=== PATIENT | female | born 1945 | race Caucasian/White ===

== ENCOUNTER 2017-09-16 19:14 | Inpatient (IN) | payer OTHER, MEDICAID ==
[~2017-09-16] VITALS: Ht 167.6 cm; Wt 81.3 kg
[~2017-09-16 19:14] MED LIST: MECL25TA94; METF100097; Plavix; VENL150C; lipitor
[2017-09-16] MEDS ORDERED: MORPHINE SULF INJ 2 MG/ML SYRINGE 1ML ONE (23:34)
[2017-09-16] MEDS ORDERED: ONDANSETRON HCL 4 MG/2 ML VIAL IV ONE (23:45)
[2017-09-16] MEDS ORDERED: MORPHINE SULFATE 4 MG/ML SYR/VIAL IV ONE (23:45)
[2017-09-17 00:39] LABS: Basophils # (auto) 0.1 uL; Basophils % (auto) 0.8 % (0.0-2.0); Eosinophils # (auto) 0.1 uL; Eosinophils % (auto) 0.7 % (0.0-7.0); Hematocrit 43.4 % (36.0-46.0); Hemoglobin 14.3 g/dL (12.2-16.2); Lymphocytes # (auto) 1.6 uL; Lymphocytes % (auto) 19.1 % (10.0-50.0); Monocytes # (auto) 0.6 uL; Monocytes % (auto) 6.7 % (0.0-12.0); Neutrophils % (auto) 72.7 % (37.0-80.0); Nucleated Red Blood Cells % 0.1 %; Platelet Count (auto) 239 10^3/uL (140-450); Red Blood Cells 4.77 10^6/uL (4.0-5.20); Red Cell Distribution Width 15.4 % (11.8-14.3); White Blood Cell 8.2 10^3/uL (4.4-10.8)
[2017-09-17 00:51] LABS: INR 0.98 (0.9-1.15); Partial Thromboplastin Time 24.3 sec (22.64-33.71); Prothrombin Time 10.7 sec (9.37-12.3)
[2017-09-17 00:55] LABS: Albumin 3.7 g/dL (3.4-5.0); BUN/Creatinine Ratio 18.6; Calcium 8.7 mg/dL (8.5-10.1); Potassium 3.7 mmol/L (3.5-5.1)
[2017-09-17 00:57] LABS: Bilirubin, Total 0.5 mg/dL (0.2-1.0); Total Protein 7.3 g/dL (6.4-8.2)
[2017-09-17] MEDS ORDERED: HYDROcodone-ACET 10/325MG TAB PO ONE (02:15)
[2017-09-17] MEDS: SODIUM CHLORIDE 0.9% 1,000 ML IV SCH ×2 (03:52→20:32)
[2017-09-17] MEDS ORDERED: ONDANSETRON HCL 4 MG/2 ML VIAL IV PRN (04:00)
[2017-09-17] MEDS ORDERED: DOCUSATE SOD 100 MG CAP PO PRN (04:00)
[2017-09-17] MEDS ORDERED: TEMAZEPAM 15 MG CAP PO PRN (04:00)
[2017-09-17] MEDS ORDERED: ACETAMINOPHEN 325 MG TAB PO PRN (04:00)
[2017-09-17] MEDS ORDERED: NITROGLYCERIN 0.4 MG SL TAB SL PRN (04:00)
[2017-09-17] MEDS ORDERED: DEXTROSE (50%) 50ML SYRG IV PRN (04:00)
[2017-09-17] MEDS ORDERED: MORPHINE SULFATE 4 MG/ML SYR/VIAL IV PRN (04:00)
[2017-09-17] MEDS: ACCU-CHEK COMFORT CURVE STRIP VI SCH ×3 (06:00→18:30)
[2017-09-17] MEDS: InsuLIN REG 1unit/0.01ml Soln (100units/ml) SC SCH ×3 (06:00→18:31)
[2017-09-17] MEDS: HYDROcodone-ACET 5/325MG TAB PO PRN (08:22)
[2017-09-17] MEDS: LISINOPRIL 5 MG TAB PO SCH (10:00)
[2017-09-17] MEDS: PARoxetine 20 MG TAB PO SCH (10:22)
[2017-09-17] MEDS: TOLTERODINE TARTRATE 1 MG TAB PO SCH ×2 (10:22→22:31)
[2017-09-17] MEDS: ENOXAPARIN SOD 40 MG/0.4 ML SYRINGE SC SCH (10:22)
[2017-09-17] MEDS: ASPirin 81 mg TAB PO SCH (10:22)
[2017-09-17] MEDS: FAMOTIDINE 20 MG TAB PO SCH ×2 (10:22→22:32)
[2017-09-17] MEDS ORDERED: LORA-654 PO (10:37)
[2017-09-17] MEDS ORDERED: LISI-275 PO (10:38)
[2017-09-17] MEDS ORDERED: TOLT2CAP7 PO (10:38)
[2017-09-17] MEDS ORDERED: PIO30T PO (10:38)
[2017-09-17] MEDS ORDERED: CLOP75TA28 PO (10:39)
[2017-09-17] MEDS ORDERED: MECL-87 PO (10:39)
[2017-09-17] MEDS ORDERED: PAR20T PO (10:40)
[2017-09-17] MEDS ORDERED: ATO40T PO (10:40)
[2017-09-17] MEDS ORDERED: METF-371 PO (10:41)
[2017-09-17] MEDS: HYDROmorphone HCL 2 MG/ML VL IV PRN ×2 (11:06→18:32)
[2017-09-17 13:12] LABS: Urine Bacteria FEW /hpf (None Seen); Urine Blood 1+ /uL (Negative); Urine Budding Yeast OCCASIONAL /hpf (None Seen); Urine Mucus FEW (None Seen); Urine Specific Gravity 1.036 (1.001-1.035); Urine WBC 73 /hpf (0 - 5)
[2017-09-17 17:00] VITALS: BP 123/69
[2017-09-17 22:00] VITALS: BP 110/62
[2017-09-17] MEDS: ATORVASTATIN 20 MG TAB PO SCH (22:32)
[2017-09-18] MEDS: InsuLIN REG 1unit/0.01ml Soln (100units/ml) SC SCH ×4 (01:11→17:41)
[2017-09-18 05:00] VITALS: BP 118/64
[2017-09-18] MEDS: ACCU-CHEK COMFORT CURVE STRIP VI SCH ×4 (05:47→17:42)
[2017-09-18 05:48] LABS: Basophils # (auto) 0.2 uL; Eosinophils # (auto) 0.1 uL; Eosinophils % (auto) 2.4 % (0.0-7.0); Hematocrit 40.9 % (36.0-46.0); Hemoglobin 13.6 g/dL (12.2-16.2); Lymphocytes # (auto) 1.9 uL; Lymphocytes % (auto) 32.5 % (10.0-50.0); Mean Corpuscular Hemoglobin 30.1 pg (28.0-32.0); Mean Corpuscular Hgb Conc. 33.3 g/dL (32.0-36.0); Mean Corpuscular Volume 90.4 fL (80.0-100.0); Monocytes # (auto) 0.5 uL; Monocytes % (auto) 8.1 % (0.0-12.0); Neutrophils # (auto) 3.1 uL; Nucleated Red Blood Cells % 0.2 %; Platelet Count (auto) 195 10^3/uL (140-450); Red Blood Cells 4.53 10^6/uL (4.0-5.20); Red Cell Distribution Width 15.2 % (11.8-14.3); White Blood Cell 5.8 10^3/uL (4.4-10.8)
[2017-09-18 06:07] LABS: Albumin 3.2 g/dL (3.4-5.0); BUN/Creatinine Ratio 18.9; Bilirubin, Total 0.7 mg/dL (0.2-1.0); Calcium 8.4 mg/dL (8.5-10.1); Potassium 4.1 mmol/L (3.5-5.1); Total Protein 6.6 g/dL (6.4-8.2)
[2017-09-18 08:00] VITALS: BP 129/69
[2017-09-18] MEDS: HYDROmorphone HCL 2 MG/ML VL IV PRN ×3 (08:27→20:05)
[2017-09-18 09:00] VITALS: BP 129/69
[2017-09-18] MEDS: TOLTERODINE TARTRATE 1 MG TAB PO SCH ×2 (09:49→21:33)
[2017-09-18] MEDS: FAMOTIDINE 20 MG TAB PO SCH ×2 (09:50→21:33)
[2017-09-18] MEDS: ASPirin 81 mg TAB PO SCH (09:50)
[2017-09-18] MEDS: PARoxetine 20 MG TAB PO SCH (09:50)
[2017-09-18] MEDS: LISINOPRIL 5 MG TAB PO SCH (09:51)
[2017-09-18] MEDS: ENOXAPARIN SOD 40 MG/0.4 ML SYRINGE SC SCH (09:51)
[2017-09-18 13:00] VITALS: BP 130/69
[2017-09-18] MEDS: SODIUM CHLORIDE 0.9% 1,000 ML IV SCH (13:12)
[2017-09-18 16:56] VITALS: BP 132/93
[2017-09-18] MEDS: HYDROcodone-ACET 5/325MG TAB PO PRN (17:41)
[2017-09-18] MEDS: ATORVASTATIN 20 MG TAB PO SCH (21:33)
[2017-09-18 22:27] VITALS: BP 140/78
[2017-09-19] MEDS: ACCU-CHEK COMFORT CURVE STRIP VI SCH ×5 (00:02→23:52)
[2017-09-19] MEDS: InsuLIN REG 1unit/0.01ml Soln (100units/ml) SC SCH ×6 (00:22→23:57)
[2017-09-19 05:30] VITALS: BP 139/75
[2017-09-19 08:00] VITALS: BP 139/79
[2017-09-19 09:00] VITALS: BP 139/79
[2017-09-19] MEDS: PARoxetine 20 MG TAB PO SCH (10:14)
[2017-09-19] MEDS: TOLTERODINE TARTRATE 1 MG TAB PO SCH ×2 (10:14→21:12)
[2017-09-19] MEDS: FAMOTIDINE 20 MG TAB PO SCH ×2 (10:14→21:12)
[2017-09-19] MEDS: ASPirin 81 mg TAB PO SCH (10:15)
[2017-09-19] MEDS: LISINOPRIL 5 MG TAB PO SCH (10:15)
[2017-09-19] MEDS: HYDROmorphone HCL 2 MG/ML VL IV PRN ×3 (10:16→21:17)
[2017-09-19] MEDS: ENOXAPARIN SOD 40 MG/0.4 ML SYRINGE SC SCH (10:16)
[2017-09-19] MEDS ORDERED: MILK OF MAGNESIA 30ML SUSP PO PRN (11:00)
[2017-09-19 13:00] VITALS: BP 147/78
[2017-09-19 17:46] VITALS: BP 151/77
[2017-09-19] MEDS ORDERED: guaiFENesin-DM 100/10mg/5ml SYR PO ONE (21:00)
[2017-09-19] MEDS: ATORVASTATIN 20 MG TAB PO SCH (21:11)
[2017-09-19] MEDS: DOCUSATE SOD 100 MG CAP PO SCH (21:11)
[2017-09-20] VITALS (7 sets, daily range): BP systolic 136–152; BP diastolic 67–91
[2017-09-20] MEDS: InsuLIN REG 1unit/0.01ml Soln (100units/ml) SC SCH ×3 (05:51→17:31)
[2017-09-20] MEDS ORDERED: ADENOSINE 72 MG in GIVE UN-DILUTED 0 ML IV ONE (08:30)
[2017-09-20] MEDS: DOCUSATE SOD 100 MG CAP PO SCH ×2 (10:00→21:39)
[2017-09-20] MEDS: ENOXAPARIN SOD 40 MG/0.4 ML SYRINGE SC SCH (10:00)
[2017-09-20] MEDS: TOLTERODINE TARTRATE 1 MG TAB PO SCH ×2 (10:00→21:39)
[2017-09-20] MEDS: ASPirin 81 mg TAB PO SCH (12:01)
[2017-09-20] MEDS: LISINOPRIL 5 MG TAB PO SCH (12:02)
[2017-09-20] MEDS: FAMOTIDINE 20 MG TAB PO SCH ×2 (12:02→21:39)
[2017-09-20] MEDS: PARoxetine 20 MG TAB PO SCH (12:02)
[2017-09-20] MEDS: ACCU-CHEK COMFORT CURVE STRIP VI SCH ×2 (12:03→17:13)
[2017-09-20] MEDS: PROMETHAZINE-DM 5 ML ORAL SYRUP PO PRN (15:33)
[2017-09-20] MEDS: HYDROmorphone HCL 2 MG/ML VL IV PRN ×2 (17:13→21:40)
[2017-09-20] MEDS: ATORVASTATIN 20 MG TAB PO SCH (21:39)
[2017-09-21] MEDS: InsuLIN REG 1unit/0.01ml Soln (100units/ml) SC SCH ×4 (00:18→18:08)
[2017-09-21] MEDS: ACCU-CHEK COMFORT CURVE STRIP VI SCH ×4 (00:18→17:39)
[2017-09-21 05:30] VITALS: BP 151/72
[2017-09-21 08:00] VITALS: BP 135/67
[2017-09-21 09:00] VITALS: BP 135/67
[2017-09-21] MEDS: ENOXAPARIN SOD 40 MG/0.4 ML SYRINGE SC SCH (10:00)
[2017-09-21] MEDS: DOCUSATE SOD 100 MG CAP PO SCH ×2 (10:00→22:00)
[2017-09-21] MEDS: ASPirin 81 mg TAB PO SCH (10:04)
[2017-09-21] MEDS: LISINOPRIL 5 MG TAB PO SCH (10:05)
[2017-09-21] MEDS: FAMOTIDINE 20 MG TAB PO SCH ×2 (10:06→22:06)
[2017-09-21] MEDS: PARoxetine 20 MG TAB PO SCH (10:06)
[2017-09-21] MEDS: TOLTERODINE TARTRATE 1 MG TAB PO SCH ×2 (10:06→22:06)
[2017-09-21 13:00] VITALS: BP 124/60
[2017-09-21] MEDS: PROMETHAZINE-DM 5 ML ORAL SYRUP PO PRN (15:18)
[2017-09-21 17:22] VITALS: BP 138/66
[2017-09-21 22:00] VITALS: BP 130/69
[2017-09-21] MEDS: ATORVASTATIN 20 MG TAB PO SCH (22:06)
[2017-09-22] MEDS: ACCU-CHEK COMFORT CURVE STRIP VI SCH ×5 (00:05→23:22)
[2017-09-22] MEDS: InsuLIN REG 1unit/0.01ml Soln (100units/ml) SC SCH ×5 (00:06→23:22)
[2017-09-22 06:00] VITALS: BP 123/69
[2017-09-22 08:00] VITALS: BP 109/67
[2017-09-22] MEDS ORDERED: IOHEXOL 350 MG/ML 100ML IJ ONE (08:15)
[2017-09-22] MEDS ORDERED: LIDOCAINE 2%HCL (LOCAL ANESTH.) INJ 20ML MDV ONE (08:15)
[2017-09-22] MEDS ORDERED: fentaNYL CITRATE 100 MCG/2 ML VL ONE (08:20)
[2017-09-22] MEDS ORDERED: MIDAZOLAM HCL 1MG/1ML-2 ML VIAL ONE (08:20)
[2017-09-22] MEDS ORDERED: ANGIOMAX 250 MG VIAL IV ONE (08:20)
[2017-09-22] MEDS ORDERED: SODIUM CHL 0.9% 50 ML ONE (08:21)
[2017-09-22] MEDS: ASPirin 81 mg TAB PO SCH (10:00)
[2017-09-22] MEDS: DOCUSATE SOD 100 MG CAP PO SCH ×2 (10:00→22:00)
[2017-09-22] MEDS: FAMOTIDINE 20 MG TAB PO SCH ×2 (12:08→21:59)
[2017-09-22] MEDS: PARoxetine 20 MG TAB PO SCH (12:08)
[2017-09-22] MEDS: TOLTERODINE TARTRATE 1 MG TAB PO SCH ×2 (12:09→21:59)
[2017-09-22] MEDS: ENOXAPARIN SOD 40 MG/0.4 ML SYRINGE SC SCH (12:09)
[2017-09-22] MEDS: LISINOPRIL 5 MG TAB PO SCH (12:09)
[2017-09-22 13:03] VITALS: BP 109/67
[2017-09-22 17:00] VITALS: BP 120/70
[2017-09-22 20:00] VITALS: BP 135/70
[2017-09-22] MEDS: HYDROcodone-ACET 5/325MG TAB PO PRN (20:56)
[2017-09-22 21:49] VITALS: BP 135/70
[2017-09-22] MEDS: ATORVASTATIN 20 MG TAB PO SCH (22:00)
[2017-09-23 05:16] VITALS: BP 128/62
[2017-09-23] MEDS: ACCU-CHEK COMFORT CURVE STRIP VI SCH ×3 (05:50→18:00)
[2017-09-23] MEDS: InsuLIN REG 1unit/0.01ml Soln (100units/ml) SC SCH ×3 (05:50→18:00)
[2017-09-23 08:00] VITALS: BP 122/66
[2017-09-23] MEDS: DOCUSATE SOD 100 MG CAP PO SCH ×3 (10:00→22:41)
[2017-09-23] MEDS: LISINOPRIL 5 MG TAB PO SCH (10:06)
[2017-09-23] MEDS: TOLTERODINE TARTRATE 1 MG TAB PO SCH ×2 (10:07→22:41)
[2017-09-23] MEDS: PARoxetine 20 MG TAB PO SCH (10:07)
[2017-09-23] MEDS: FAMOTIDINE 20 MG TAB PO SCH ×2 (10:07→22:41)
[2017-09-23] MEDS: ENOXAPARIN SOD 40 MG/0.4 ML SYRINGE SC SCH (10:08)
[2017-09-23] MEDS: ASPirin 81 mg TAB PO SCH (10:13)
[2017-09-23 13:04] VITALS: BP 113/82
[2017-09-23 16:48] VITALS: BP 118/72
[2017-09-23] MEDS: HYDROmorphone HCL 2 MG/ML VL IV PRN (20:05)
[2017-09-23 21:30] VITALS: BP 118/69
[2017-09-23] MEDS: ATORVASTATIN 20 MG TAB PO SCH (22:41)
[2017-09-23] MEDS: PROMETHAZINE-DM 5 ML ORAL SYRUP PO PRN (22:43)
[2017-09-24] MEDS: InsuLIN REG 1unit/0.01ml Soln (100units/ml) SC SCH ×5 (00:48→23:15)
[2017-09-24 05:00] VITALS: BP 141/69
[2017-09-24] MEDS: ACCU-CHEK COMFORT CURVE STRIP VI SCH ×5 (05:46→23:15)
[2017-09-24 09:00] VITALS: BP 145/66
[2017-09-24] MEDS: DOCUSATE SOD 100 MG CAP PO SCH ×2 (10:00→20:13)
[2017-09-24] MEDS: TOLTERODINE TARTRATE 1 MG TAB PO SCH ×2 (10:49→20:12)
[2017-09-24] MEDS: FAMOTIDINE 20 MG TAB PO SCH ×2 (10:49→20:13)
[2017-09-24] MEDS: PARoxetine 20 MG TAB PO SCH (10:49)
[2017-09-24] MEDS: LISINOPRIL 5 MG TAB PO SCH (10:52)
[2017-09-24] MEDS: ASPirin 81 mg TAB PO SCH (10:53)
[2017-09-24] MEDS: ENOXAPARIN SOD 40 MG/0.4 ML SYRINGE SC SCH (10:53)
[2017-09-24] MEDS: HYDROmorphone HCL 2 MG/ML VL IV PRN ×3 (11:00→20:13)
[2017-09-24 13:00] VITALS: BP 133/76
[2017-09-24 16:54] VITALS: BP 103/61
[2017-09-24] MEDS: ATORVASTATIN 20 MG TAB PO SCH (20:13)
[2017-09-24] MEDS: PROMETHAZINE-DM 5 ML ORAL SYRUP PO PRN (21:32)
[2017-09-24 22:00] VITALS: BP 90/54
[2017-09-25] MEDS: HYDROmorphone HCL 2 MG/ML VL IV PRN ×3 (04:52→13:24)
[2017-09-25] MEDS: ACCU-CHEK COMFORT CURVE STRIP VI SCH ×3 (04:52→17:33)
[2017-09-25] MEDS: InsuLIN REG 1unit/0.01ml Soln (100units/ml) SC SCH ×3 (04:53→17:33)
[2017-09-25 05:00] VITALS: BP 138/91
[2017-09-25 08:46] VITALS: BP 128/74
[2017-09-25] MEDS: PROMETHAZINE-DM 5 ML ORAL SYRUP PO PRN (09:13)
[2017-09-25] MEDS: DOCUSATE SOD 100 MG CAP PO SCH (10:00)
[2017-09-25] MEDS: ASPirin 81 mg TAB PO SCH (10:12)
[2017-09-25] MEDS: ENOXAPARIN SOD 40 MG/0.4 ML SYRINGE SC SCH (10:13)
[2017-09-25] MEDS: LISINOPRIL 5 MG TAB PO SCH (10:14)
[2017-09-25] MEDS: PARoxetine 20 MG TAB PO SCH (10:15)
[2017-09-25] MEDS: FAMOTIDINE 20 MG TAB PO SCH (10:16)
[2017-09-25] MEDS: TOLTERODINE TARTRATE 1 MG TAB PO SCH (10:16)
[2017-09-25 13:00] VITALS: BP 126/66
[2017-09-25 16:20] VITALS: BP 126/66
[2017-09-25 17:00] VITALS: BP 112/70
== END 2017-09-25 18:45 | DRG 280 ==
LOC: ER 19:27 → TELE 19:28 → TELE-WESTW 09-17 16:08
PROVIDERS: ADMIT Nurse Practitioner; ATTEND Internal Medicine
PROC: 4A023N7 Measurement of Cardiac Sampling and Pressure, Left Heart, Percutaneous Approach (ICD-10-PCS; principal; 2017-09-22)
PROC: B2111ZZ Fluoroscopy of Multiple Coronary Arteries using Low Osmolar Contrast (ICD-10-PCS; 2017-09-22)
PROC: B2151ZZ Fluoroscopy of Left Heart using Low Osmolar Contrast (ICD-10-PCS; 2017-09-22)
DX: I21.4 Non-ST elevation (NSTEMI) myocardial infarction (principal); S32.491A Other specified fracture of right acetabulum, initial encounter for closed fracture; E11.9 Type 2 diabetes mellitus without complications; I67.2 Cerebral atherosclerosis; W18.39XA Other fall on same level, initial encounter; W18.30XA Fall on same level, unspecified, initial encounter; I10 Essential (primary) hypertension; I25.10 Atherosclerotic heart disease of native coronary artery without angina pectoris; E78.5 Hyperlipidemia, unspecified; M54.2 Cervicalgia; K59.00 Constipation, unspecified; F32.9 Major depressive disorder, single episode, unspecified; F41.9 Anxiety disorder, unspecified; Z98.61 Coronary angioplasty status; Z79.899 Other long term (current) drug therapy; Y93.89 Activity, other specified; Y92.098 Other place in other non-institutional residence as the place of occurrence of the external cause; Y99.8 Other external cause status; Z87.81 Personal history of (healed) traumatic fracture; Z86.12 Personal history of poliomyelitis; Z86.73 Personal history of transient ischemic attack (TIA), and cerebral infarction without residual deficits; Z71.3 Dietary counseling and surveillance
CPT/HCPCS: 36415; 70450; 71045; 72131; 73700; 80053; 81001; 82962; 83880; 84443; 84484; 85025; 85610; 85730; 93005; 93017; 93306; 93458; 96372; 96374; 96375; 97116; 97163; 97530; 99152; J0153; J1815; J2250; J2405

== ENCOUNTER 2022-03-06 11:23 | Emergency (ER) | payer OTHER, MEDICAID ==
[~2022-03-06] VITALS: Ht 170.2 cm; Wt 72.6 kg
[~2022-03-06 11:23] MED LIST changes: +ATO40T PO; +CLOP75TA28 PO; +HYDR-531; +HYDR25TA5; +INSLANTI; +LISI-275 PO; +LORA0.5T20 PO; +MECL25TA18 PO; -MECL25TA94; +METF-371 PO; -METF100097; +PAR20T PO; +PIO30T PO; +POTA1TAB61; +PRIM50TA5; +PROC10TA2; -Plavix; +TOLT2CAP PO; -VENL150C; -lipitor; +pravastatin
[2022-03-06] MEDS ORDERED: SODIUM CHLORIDE 0.9% 500 ML IV ONE (12:15)
[2022-03-06 13:44] LABS: Basophils # (auto) 0 10 ^3/uL (0-0.2); Basophils % (auto) 0.4 % (0.0-2.0); Eosinophils # (auto) 0 10 ^3/uL (0-0.8); Eosinophils % (auto) 0.3 % (0.0-7.0); Hemoglobin 12.7 g/dL (12.2-16.2); Lymphocytes # (auto) 0.5 10 ^3/uL (0.4-5.4); Lymphocytes % (auto) 4.6 % (10.0-50.0); Mean Corpuscular Hemoglobin 30.4 pg (28.0-32.0); Mean Corpuscular Hgb Conc. 33.4 g/dL (32.0-36.0); Mean Corpuscular Volume 90.9 fL (80.0-100.0); Monocytes # (auto) 0.8 10 ^3/uL (0-1.3); Monocytes % (auto) 6.7 % (0.0-12.0); Neutrophils # (auto) 10.1 10 ^3/uL (1.6-8.6); Red Blood Cells 4.18 10^6/uL (4.0-5.20); Red Cell Distribution Width 14.5 % (11.8-14.3); White Blood Cell 11.4 10^3/uL (4.4-10.8)
[2022-03-06 13:59] LABS: Potassium 3.9 mmol/L (3.5-5.1)
[2022-03-06 14:05] LABS: Albumin 3.2 g/dL (3.4-5.0); BUN/Creatinine Ratio 28.7; Bilirubin, Total 0.4 mg/dL (0.2-1.0); Calcium 8.7 mg/dL (8.5-10.1); Total Protein 7.7 g/dL (6.4-8.2)
[2022-03-06 14:58] LABS: Urine Bacteria MANY /hpf (None Seen); Urine Blood Negative /uL (Negative); Urine Mucus FEW (None Seen); Urine Specific Gravity 1.018 (1.001-1.035); Urine WBC 5 /hpf (0 - 5)
[2022-03-06] MEDS ORDERED: NITR-87 PO (16:38)
[2022-03-06] MEDS ORDERED: cefTRIAXone 1GM/50ML D5W 50 ML IV ONE (16:45)
[2022-03-06 17:00] VITALS: BP 155/74
== END 2022-03-06 17:55 | disposition home or self-care (01) ==
LOC: ER 11:23 → EDBD 11:23 → ER 17:55
DX: E11.649 Type 2 diabetes mellitus with hypoglycemia without coma (principal); N39.0 Urinary tract infection, site not specified; D72.829 Elevated white blood cell count, unspecified; E78.5 Hyperlipidemia, unspecified; I10 Essential (primary) hypertension; Z86.73 Personal history of transient ischemic attack (TIA), and cerebral infarction without residual deficits; Z90.49 Acquired absence of other specified parts of digestive tract
CPT/HCPCS: 36415; 71045; 80053; 81001; 82962; 85025; 93005; 96361; 96365; 99285; J0696; J7040

== ENCOUNTER 2024-09-08 09:02 | Inpatient (IN) | payer OTHER, MEDICAID ==
[~2024-09-08] VITALS: Ht 170.2 cm; Wt 78.5 kg
[~2024-09-08 09:02] MED LIST changes: -ATO40T PO; +ATOR-507 PO; +LORA-1121 PO; -LORA0.5T20 PO; +MECL-90 PO; -MECL25TA18 PO; +NITR-87 PO; +POTA-215; -POTA1TAB61; -PROC10TA2; +PROC10TA6
--- NOTE | 2024-09-08 10:55 | DVH ---
CT ABDOMEN AND PELVIS WITHOUT CONTRAST CLINICAL HISTORY: gib TECHNIQUE: Multiple contiguous axial images of the abdomen and pelvis without intravenous contrast. The images were reformatted degenerate coronal and sagittal reconstructions. All CT scans at this medical facility are performed using dose modulation techniques as appropriate t o a performed exam including the following:Automated exposure control was utilized; adjustment of the MA and/or KV according to patient size; and use of iterative reconstruction technique. Radiation Dose Information: CT Dose: CTDI volume is 12 mGy. Dose-length product is 724 mGy*cm Comparison: None FINDINGS: Evaluation of the abdomen and pelvis is limited without intravenous contrast. Gallbladder is surgically absent. There are calcified granulomas in the spleen and a few in the liver . There is a 2.4 cm right lower pole renal cyst. There is no evidence of nephrolithiasis or hydronep hrosis. The pancreas, and adrenal glands, appear within normal limits. There is no gross evidence of abdominal lymphadenopathy. There is no free fluid or free air. The stomach grossly appears unremarkable. The small and large bowel loops demonstrate normal caliber . There is moderate amount of stool in the colon. Calcified atherosclerotic changes in the abdominal aorta. The IVC appears within normal limits. The bladder appears unremarkable for the degree of distention. Uterus is surgically absent.. There i s no gross evidence of a pelvic mass. There is no free fluid collection. Lung bases are clear. There is no acute osseous abnormality. IMPRESSION: 1. There is no acute process in the abdomen and pelvis. 2. Moderate amount of stool in the colon. 3. Cholecystectomy and hysterectomy. 4. Calcified granulomas in the spleen and a few in the liver. HS:Y
--- NOTE | 2024-09-08 10:56 | DVH ---
CHEST RADIOGRAPH Indication: weakness Technique: Single frontal view of the chest was obtained COMPARISON: CHEST PORTABLE on DOS: 03/06/22, CXRP on DOS: 03/06/22, CHEST PORTABLE on DOS: 10/07/19 FINDINGS: Lines and Tubes: None Lungs: Clear Pleura: No effusion. No pneumothorax. Cardiomediastinal contours: Unremarkable Bones: Unremarkable IMPRESSION: No acute disease.
--- NOTE | 2024-09-08 11:11 | ED.PDOC ---
GI ASSESSMENT HPI Comments 79y F who presents to the ED via EMS for chief complaint of GI bleeding. Pt states she has been having blood in stool with associated dizziness and generalized weakness for the past 3 days. Pt states she has had 1 blood bowel movement daily for the past 3 days and has been getting progressively weaker with associated generalized malaise. Pt in the ED, states stool appears as "dark coal." Pt is alert and oriented x 4 in the ED. Pt in the ED, has temp of 98.6 F and BP of 130/62 with all other vitals in normal range. Pt otherwise denies any other symptoms. Chief Complaint: GI Bleed Time Seen by MD: 11:04 Primary Care Provider: unknown Reviewed Notes: Nurses Notes, Credit Product Analyst Notes Allergies: Coded Allergies: NO KNOWN ALLERGIES (Unverified , 02/21/10) Home Meds Active Scripts Nitrofurantoin Monohydrate Mac (Macrobid) 100 Mg Cap, 100 MG PO BID for 5 Days, #10 CAP Prov:KINJAL BEASLEY MD 03/06/22 Reported Medications Prochlorperazine Maleate (Compazine) 10 Mg Tb 10/07/19 Hydrocodone-Acetaminophen (Waldron 10-325 mg) 1 Tab Tab 10/07/19 Potassium Chloride (Klor-Con M10) 10 Meq Tab 10/07/19 Primidone (MYSOLINE TABLET) 50 Mg Tb 10/07/19 Hctz (Hydrochlorothiazide) 25 Mg Tab 10/07/19 [pravastatin] No Conflict Check 10/07/19 Insulin Glargine (Lantus) 100 Unit/Ml Inj 10/07/19 Metformin Hydrochloride (Metformin Hcl) 850 Mg Tab, 1000 MG PO DAILY for 30 Days, MG 09/17/17 Paroxetine (PAXIL TABLET) 20 Mg Tb, 40 MG PO DAILY for 30 Days 09/17/17 Atorvastatin Calcium (Lipitor) 40 Mg Tab, 1 TAB PO QPM, #90 TAB 1 Refill 09/17/17 Clopidogrel Bisulfate (Plavix) 75 Mg Tab, 75 MG PO DAILY, TAB 09/17/17 Meclizine Hcl (Meclizine Hcl) 25 Mg Tab, 25 MG PO BIDP PRN for DIZZINESS for 30 Days, MG 09/17/17 Tolterodine Tartrate (Detrol La) 2 Mg Cap, 4 MG PO DAILY, CAP 09/17/17 Lisinopril (Lisinopril) 5 Mg Tab, 5 MG PO DAILY for 30 Days, MG 09/17/17 Pioglitazone Hydrochloride (ACTOS TABLET) 30 Mg Tb, 1 TAB PO DAILY, #30 TAB 5 Refills 09/17/17 Lorazepam (ATIVAN TABLET) 0.5 Mg Tb, 1 TAB PO BID, #60 TAB 09/17/17 Information Source: Patient Mode of Arrival: EMS Brought in by: EMS Past Medical History PAST MEDICAL HISTORY: CAD, DM, High Lipids, HTN, TIA Surgical History: Cholecystectomy [employer] History: Unobtainable Family History Family History: Family hx of Cancer, Family hx of HTN Social History Smoker: Non-Smoker Alcohol: Denies ETOH Use Drugs: Denies Drug Use Lives In: Home Constitutional: reports: malaise, weakness; denies: chills, diaphoresis, fatigue, fever, sweats, others EENTM: denies: blurred vision, double vision, ear bleeding, ear discharge, ear drainage, ear pain, ear ringing, eye pain, eye redness, hearing loss, mouth pain, mouth swelling, nasal discharge, nose bleeding, nose congestion, nose pain, photophobia, tearing, throat pain, throat swelling, voice changes, others Respiratory: denies: cough, hemoptysis, orthopnea, SOB at rest, shortness of breath, SOB with excertion, stridor, wheezing, others Cardiovascular: denies: chest pain, dizzy spells, diaphoresis, Dyspnea on exertion, edema, irregular heart beat, left arm pain, lightheadedness, palpitations, PND, syncope, others Gastrointestinal: reports: blood streaked bowels; denies: abdomen distended, abdominal pain, constipated, diarrhea, dysphagia, difficulty swallowing, hematemesis, melena, nausea, poor appetite, poor fluid intake, rectal bleeding, rectal pain, vomiting, others Genitourinary: denies: abnormal vagina bleeding, burning, dyspareunia, dysuria, flank pain, frequency, hematuria, incontinence, pain, , vagina discharge, urgency, others Neurological: reports: dizziness; denies: fainting, headache, left sided numbness, left sided weakness, numbness, paresthesia, pre-existing deficit, r ight sided numbness, right sided weakness, seizure, speech problems, tingling, tremors, weakness, others Musculoskeletal: denies: back pain, gout, joint pain, joint swelling, muscle pain, muscle stiffness, neck pain, others Integumetry: denies: bruises, change in color, change in hair/nails, dryness, laceration, lesions, lumps, rash, wounds, others Allergic/Immunocompromised: denies: Difficulty Healing, Frequent Infections, Hives, Itching, others Hematologic/Lymphatic: denies: anemia, blood clots, easy bleeding, easy bruising, swollen glands, others Endocrine: denies: excessive hunger, excessive sweating, excessive thirst, excessive urination, flushing, intolerance to cold, intolerance to heat, unexplained weight gain, unexplained weight loss, others Psychiatric: denies: anxiety, bipolar disorder, depression, hopeless, panic disorder, schizophrenia, sleepless, suicidal, others All Other Systems: Reviewed and Negative Physical Exam General Appearance: No Apparent Distress, Normal HEENT: Normal ENT Inspection, Pharynx Normal, TMs Normal Neck: Full Range of Motion, Non-Tender, Normal, Normal Inspection Respiratory: Chest Non-Tender, Lungs Clear, No Accessory Muscle Use, No Respiratory Distress, Normal Breath Sounds Cardiovascular: No Edema, No JVD, No Murmur, No Gallop, Normal Peripheral Pulses, Regular Rate/Rhythm Breast Exam: Deferred Gastrointestinal: Other (normal abdominal exam, no bruits, normal bowel sounds, no pulsatile sensa) Genitalia: Deferred Pelvic: Deferred Rectal: Deferred Extremities: No calf tenderness, Normal capillary refill, Normal inspection, Normal range of motion, Non-tender, No pedal edema Musculoskeletal : Apperance: Normal 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 Was a procedure done?: No GI differential Dx Differential Diagnosis: Constipation, Diverticular disease, Esophagitis, Gastritis/PUD, Gastroenteritis, GI hemorrhage, Inflammatory BD, Ischemic Bowel, Dehydration, Electrolyte Imbalance, Impaction, Mass, Anemia Other Differential Diagnosis GI bleed, rectal bleed X-Ray, Labs, Meds, VS Vital Signs Date Time Temp Pulse Resp B/P (MAP) Pulse Ox O2 Delivery O2 Flow Rate FiO2 09/08/24 09:19 98.6 72 16 130/62 (84) 96 12/27/24 09:10 72 Lab Test 09/08/24 13:42 09/08/24 12:59 Range/Units Troponin I High Sensitivity < 3 L < 3 L </=34 ng/L White Blood Count 6.1 4.4-10.8 10^3/uL Red Blood Count 2.83 L 4.0-5.20 10^6/uL Hemoglobin 8.9 L 12.2-16.2 g/dL Hematocrit 27.6 L 36.0-46.0 % Mean Corpuscular Volume 97.6 80.0-100.0 fL Mean Corpuscular Hemoglobin 31.6 28.0-32.0 pg Mean Corpuscular Hemoglobin Concent 32.4 32.0-36.0 g/dL Red Cell Distribution Width 16.5 H 11.8-14.3 % Platelet Count 310 140-450 10^3/uL Mean Platelet Volume 7.3 6.9-10.8 fL Neutrophils (%) (Auto) 44.8 37.0-80.0 % Lymphocytes (%) (Auto) 44.1 10.0-50.0 % Monocytes (%) (Auto) 7.5 0.0-12.0 % Eosinophils (%) (Auto) 2.8 0.0-7.0 % Basophils (%) (Auto) 0.8 0.0-2.0 % Neutrophils # (Auto) 2.7 1.6-8.6 10 ^3/uL Lymphocytes # (Auto) 2.7 0.4-5.4 10 ^3/uL Monocytes # (Auto) 0.5 0-1.3 10 ^3/uL Eosinophils # (Auto) 0.2 0-0.8 10 ^3/uL Basophils # (Auto) 0 0-0.2 10 ^3/uL Nucleated Red Blood Cells 0.1 % Prothrombin Time 11.1 9.3-11.8 sec Prothrombin Time INR 1.05 0.9-1.15 Activated Partial Thromboplast Time 24.1 L 24.5-34.5 SEC Sodium Level 143 136-145 mmol/L Potassium Level 5.0 3.5-5.1 mmol/L Chloride Level 112 H 98-107 mmol/L Carbon Dioxide Level 23 20-31 mmol/L Anion Gap 8 5-15 Blood Urea Nitrogen 57 H 9-23 mg/dL Creatinine 0.73 0.550-1.02 mg/dL Glomerular Filtration Rate Calc 83 >90 mL/min BUN/Creatinine Ratio 78.1 H 10.0-20.0 Serum Glucose 93 74-106 mg/dL Calcium Level 9.7 8.7-10.4 mg/dL Current Medications Medications (Trade) Dose Ordered Sig/Roxanne Route Start Time Stop Time Status Last Admin Pantoprazole Sodium (Protonix) 40 mg ONCE ONCE IV 09/08/24 12:45 09/08/24 13:40 DC 09/08/24 15:15 [place] [address] Ph: [phone] DIAGNOSTIC IMAGING Diagnostic Imaging Report : [id number] Signed PATIENT: NICHOLAS LOPEZ ACCT: [id number] UNIT: [id number] : 1945 LOC: ER ROOM / BED: / AGE / SEX: 79 / F ADM STATUS: REG ER SERVICE 1022 ORDERING PHYSICIAN: ANDERSON STALLWORTH MD PROCEDURE(s): CXRP - CHEST PORTABLE REASON: weakness ORDER NUMBER(s): [id number], ACCESSION NUMBER(s): [id number] CHEST RADIOGRAPH Indication: weakness Technique: Single frontal view of the chest was obtained COMPARISON: CHEST PORTABLE on DOS: 03/06/22, CXRP on DOS: 03/06/22, CHEST PORTABLE on DOS: 10/07/19 FINDINGS: Lines and Tubes: None Lungs: Clear Pleura: No effusion. No pneumothorax. Cardiomediastinal contours: Unremarkable Bones: Unremarkable IMPRESSION: No acute disease. ATED BY: OREN MEYER MD DICTATED DATE/TIME: 09/08/24 105 SIGNED BY: OREN MEYER MD SIGNED DATE/TIME: 09/08/24 105 CC: [address] [address] Ph: [phone] DIAGNOSTIC IMAGING Diagnostic Imaging Report : [id number] Signed PATIENT: NICHOLAS LOPEZ ACCT: [id number] UNIT: [id number] : 1945 LOC: ER ROOM / BED: / AGE / SEX: 79 / F ADM STATUS: REG ER SERVICE 1022 ORDERING PHYSICIAN: ANDERSON STALLWORTH MD PROCEDURE(s): ABPL - CT AB PEL WO CON-NO ORAL OR IV REASON: gib ORDER NUMBER(s): [id number], ACCESSION NUMBER(s): [id number] CT ABDOMEN AND PELVIS WITHOUT CONTRAST CLINICAL HISTORY: gib TECHNIQUE: Multiple contiguous axial images of the abdomen and pelvis without intravenous contrast. The images were reformatted degenerate coronal and sagittal reconstructions. All CT scans at this medical facility are performed using dose modulation techniques as appropriate to a performed exam including the following:Automated exposure control was utilized; adjustment of the MA and/or KV according to patient size; and use of iterative reconstruction technique. Radiation Dose Information: CT Dose: CTDI volume is 12 mGy. Dose-length product is 724 mGy*cm Comparison: None FINDINGS: Evaluation of the abdomen and pelvis is limited without intravenous contrast. Gallbladder is surgically absent. There are calcified granulomas in the spleen and a few in the liver. There is a 2.4 cm right lower pole renal cyst. There is no evidence of nephrolithiasis or hydronephrosis. The pancreas, and adrenal glands, appear within normal limits. There is no gross evidence of abdominal lymphadenopathy. There is no free fluid or free air. The stomach grossly appears unremarkable. The small and large bowel loops demonstrate normal caliber. There is moderate amount of stool in the colon. Calcified atherosclerotic changes in the abdominal aorta. The IVC appears within normal limits. The bladder appears unremarkable for the degree of distention. Uterus is surgically absent.. There is no gross evidence of a pelvic mass. There is no free fluid collection. Lung bases are clear. There is no acute osseous abnormality. IMPRESSION: 1. There is no acute process in the abdomen and pelvis. 2. Moderate amount of stool in the colon. 3. Cholecystectomy and hysterectomy. 4. Calcified granulomas in the spleen and a few in the liver. HS:Y ATED BY: CHRISTIANO FALLON MD DICTATED DATE/TIME: 09/08/24 105 SIGNED BY: CHRISTIANO FALLON MD SIGNED DATE/TIME: 09/08/241053 CC: Time of 1ST Reevaluation: 11:35 Reevaluation 1ST: Unchanged Time of 2ND Reevaluation: 15:20 Reevaluation 2ND: Improved Patient Education/Counseling: Diagnosis, Treatment, Prognosis, Need For Follow Up Family Education/Counseling: No Family Present Additional Information - I reviewed the following notes from patient's past medical encounters: - The following tests were ordered, and results were reviewed by me: (Labs, X- Ray, EKG): EKG x 2, CT abdomen and pelvis without contrast, type and screen, troponin x 2, BMP, chest x-ray, PTPTT, CBC - Additional information was gathered from interviewing the following independent Historian: (Family, Other Providers, EMT): EMS - I reviewed and agreed with the following test results read by other provider: (X-ray, CT, US): radiologist - I discussed treatments and results with medical personnel and: (consultants, family) pt has been having melena, with evidence of anemia, but the ct is unremarkable. she will be admitted for further gi workups Departure 1 Departure Time of Disposition: 15:22 Impression: Primary Impression: GI bleed Qualified Codes: K92.1 - Melena Additional Impressions: Anemia Qualified Codes: D64.9 - Anemia, unspecified Weakness Disposition: ADMITTED INPATIENT Admit to: Med Surg Condition: Stable Critical Care Note Critical Care Time?: Yes (55 min-critical care time only) Critical care comment: due to concerns for patient's condition deterioration, the care required my highest attention and readiness to intervene. i spoke to the family, patient, reviewed any records, ordered the appropriate tests and treatments, reviewed the results, response and communicated with medical personnel, formulated a plan of care. critical care time does not include any procedures Stability Stability form required: No Heart Score Heart Score: Heart Score Response (Comments) Value History N/A 0 EKG N/A 0 Age N/A 0 Risk Factors N/A 0 Troponin N/A 0 Total 0 I personally scribed for ANDERSON STALLWORTH MD (TERRIE) on 09/08/24 at 11:11. Mariia ctronically submitted by Farhat Ritchie (SUSANNE). I personally scribed for ANDERSON STALLWORTH MD (TERRIE) on 09/08/24 at 11:35. Electronically submitted by Farhat Ritchie (SUSANNE). ANDERSON STALLWORTH MD Sep 08, 2024 11:11
[2024-09-08 13:22] LABS: Basophils # (auto) 0 10 ^3/uL (0-0.2); Basophils % (auto) 0.8 % (0.0-2.0); Eosinophils # (auto) 0.2 10 ^3/uL (0-0.8); Eosinophils % (auto) 2.8 % (0.0-7.0); Hematocrit 27.6 % (36.0-46.0); Hemoglobin 8.9 g/dL (12.2-16.2); Lymphocytes # (auto) 2.7 10 ^3/uL (0.4-5.4); Lymphocytes % (auto) 44.1 % (10.0-50.0); Mean Corpuscular Hemoglobin 31.6 pg (28.0-32.0); Mean Corpuscular Hgb Conc. 32.4 g/dL (32.0-36.0); Mean Corpuscular Volume 97.6 fL (80.0-100.0); Monocytes # (auto) 0.5 10 ^3/uL (0-1.3); Monocytes % (auto) 7.5 % (0.0-12.0); Neutrophils # (auto) 2.7 10 ^3/uL (1.6-8.6); Neutrophils % (auto) 44.8 % (37.0-80.0); Nucleated Red Blood Cells % 0.1 %; Platelet Count (auto) 310 10^3/uL (140-450); Red Blood Cells 2.83 10^6/uL (4.0-5.20); Red Cell Distribution Width 16.5 % (11.8-14.3); White Blood Cell 6.1 10^3/uL (4.4-10.8)
[2024-09-08 13:23] LABS: Sodium 143 mmol/L (136-145)
[2024-09-08 13:24] LABS: Anion Gap 8 (5-15); Calcium 9.7 mg/dL (8.7-10.4); Carbon Dioxide 23 mmol/L (20-31)
[2024-09-08 13:25] LABS: Chloride 112 mmol/L (98-107)
[2024-09-08 13:29] LABS: BUN/Creatinine Ratio 78.1 (10.0-20.0); Glucose 93 mg/dL (74-106)
[2024-09-08 13:30] LABS: Blood Urea Nitrogen 57 mg/dL (9-23)
[2024-09-08 13:40] LABS: INR 1.05 (0.9-1.15); Partial Thromboplastin Time 24.1 SEC (24.5-34.5); Prothrombin Time 11.1 sec (9.3-11.8)
[2024-09-08 14:00] VITALS: PULSE 82; RESP 18; O2SAT 94
[2024-09-08] MEDS: PANTOPRAZOLE 40 MG/10 ML VIAL INJ IV ONE (15:15)
[2024-09-08] MEDS ORDERED: NITROGLYCERIN 0.4 MG SL TAB SL PRN (17:15)
[2024-09-08] MEDS ORDERED: MORPHINE SULFATE INJ 2 MG/ml SYRG IV PRN (17:15)
[2024-09-08] MEDS ORDERED: DEXTROSE (50%) 50ML SYRG IV PRN (18:15)
--- NOTE | 2024-09-08 18:17 | DVHHPRES ---
History of Present Illness Resident Creating Document: GAATHA HENSLEY RESDIENT History of Present Illness This is a 79-year-old female with past medical history of diabetes mellitus type 2, hypertension, recurrent stroke, and post polio paraplegia came to the hospital because of black stool. Per patient, she has black stool since 5 days, and has bowel movement 1 time a day. She also complained of generalized weakness, tiredness and vomiting (nonbloody, food content) before starting black stool. She denies chest pain, shortness of breath, abdominal pain, diarrhea, fever, and any recent changes in the weight. 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 (Post-polio paraplegia) Endocrine: Diabetes Family History: CVA, DM Smoke: No Review of Systems Constitutional: Yes: Weakness, Malaise Gastrointestinal: Vomiting, Melena Neurological: Weakness Allergies: Coded Allergies: NO KNOWN ALLERGIES (Unverified , 02/21/10) Medications Current Medications Medications Dose Ordered Sig/Roxanne Route Start Time Stop Time Status Last Admin Dose Admin Nitroglycerin 0.4 mg Q5MINP PRN SL 09/08/24 17:15 Morphine Sulfate 2 mg Q30M PRN IV 09/08/24 17:15 Exam Vital Signs Vital Signs Date Time Temp Pulse Resp B/P (MAP) Pulse Ox O2 Delivery O2 Flow Rate FiO2 09/08/24 09:19 98.6 72 16 130/62 (84) 96 Exam General Appearance: Alert, Oriented X3, Cooperative, No acute distress HEENT: Atraumatic, PERRLA, EOMI, Mucous membrane moist/pink Respiratory: Clear to auscultation, Normal air movement Cardiovascular: Regular rate, Normal S1, Normal S2, No murmurs, no chest wall t enderness Abdominal: Normal bowel sounds, Soft, No tenderness, No hepatospenomegaly, No masses Extremities: No clubbing, No cyanosis, No edema, Normal pulses, No tenderness/swelling Skin: No rashes, No breakdown, No significant lesion Neuro: Bilateral lower limb weakness power 2/5 Psych/Mental Status: Mental status NL, Mood NL General Appearance: Alert, Oriented X3, Cooperative, No acute distress HEENT: Atraumatic, PERRLA, EOMI Respiratory: Clear to auscultation, Normal air movement Cardiovascular: Regular rate, Normal S1, Normal S2, No murmurs Abdominal: Normal bowel sounds, Soft, No tenderness, No hepatospenomegaly Extremities: No clubbing, No cyanosis, No edema, Normal pulses, No tenderness/swelling Skin: No rashes, No breakdown, No significant lesion Neuro: Normal gait, Normal speech, Strength at 5/5 X4 ext, Normal tone, Sensation intact, Cranial nerves 3-12 NL Psych/Mental Status: Mental status NL, Mood NL Labs/Xrays Labs Test 09/08/24 13:42 09/08/24 12:59 Range/Units Troponin I High Sensitivity < 3 L </=34 ng/L White Blood Count 6.1 4.4-10.8 10^3/uL Red Blood Count 2.83 L 4.0-5.20 10^6/uL Hemoglobin 8.9 L 12.2-16.2 g/dL Hematocrit 27.6 L 36.0-46.0 % Mean Corpuscular Volume 97.6 80.0-100.0 fL Mean Corpuscular Hemoglobin 31.6 28.0-32.0 pg Mean Corpuscular Hemoglobin Concent 32.4 32.0-36.0 g/dL Red Cell Distribution Width 16.5 H 11.8-14.3 % Platelet Count 310 140-450 10^3/uL Mean Platelet Volume 7.3 6.9-10.8 fL Neutrophils (%) (Auto) 44.8 37.0-80.0 % Lymphocytes (%) (Auto) 44.1 10.0-50.0 % Monocytes (%) (Auto) 7.5 0.0-12.0 % Eosinophils (%) (Auto) 2.8 0.0-7.0 % Basophils (%) (Auto) 0.8 0.0-2.0 % Neutrophils # (Auto) 2.7 1.6-8.6 10 ^3/uL Lymphocytes # (Auto) 2.7 0.4-5.4 10 ^3/uL Monocytes # (Auto) 0.5 0-1.3 10 ^3/uL Eosinophils # (Auto) 0.2 0-0.8 10 ^3/uL Basophils # (Auto) 0 0-0.2 10 ^3/uL Nucleated Red Blood Cells 0.1 % Prothrombin Time 11.1 9.3-11.8 sec Prothrombin Time INR 1.05 0.9-1.15 Activated Partial Thromboplast Time 24.1 L 24.5-34.5 SEC Sodium Level 143 136-145 mmol/L Potassium Level 5.0 3.5-5.1 mmol/L Chloride Level 112 H 98-107 mmol/L Carbon Dioxide Level 23 20-31 mmol/L Anion Gap 8 5-15 Blood Urea Nitrogen 57 H 9-23 mg/dL Creatinine 0.73 0.550-1.02 mg/dL Glomerular Filtration Rate Calc 83 >90 mL/min BUN/Creatinine Ratio 78.1 H 10.0-20.0 Serum Glucose 93 74-106 mg/dL Calcium Level 9.7 8.7-10.4 mg/dL Assessment/Plan Assessment/Plan GI bleeding, unspecified location Melena, likely due to GI bleeding Abdominal ultrasound Hepatitis panel Serum alcohol level Consult GI NPO Protonix 40 mg b.i.d. Moderate anemia, normocytic normochromic Likely due to GI bleeding, raised BUN H&H monitoring Hyperkalemia, monitor Mellitus type 2 Insulin regular according to mild sliding scale DIET: NPO DVT PROPHYLAXIS: Due to possible bleeding, no anticoagulant is indicated at the moment, SCDs GI PROPHYLAXIS:: Protonix 40 mg b.i.d. BOWEL REGIMEN: Lactulose 30 mL b.i.d. p.r.n. CODE STATUS: Goal of care discussed in detail with the patient in presence of the nurse, patient is modified DNR (no chest compression, no cardioversion, no intubation, but is okay with BiPAP and vasopressors). ACP discussion approx 30mins 09/09/24 DISPOSITION: MedSurg Patient's status discussed with the patient. Case discussed with Dr. Hansen Plan discussed with: Patient, Other (RN) My Orders Orders - AGATHA HENSLEY RESEDDY Procedure Category Date Status Time Admit ADMIT 09/08/24 Transmitted 17:04 Nitroglycerin PHA 09/08/24 In Process Sublingual (Ntrostat 17:15 Morphine Sulfate [facility] 09/08/24 In Process Injection 17:15 Oxygen By Nasal RT 09/08/24 Transmitted Cannula 17:04 Stat Ekg For Chest [facility] 09/08/24 In Process Pain 17:04 Notify Md Of Changes [facility] 09/08/24 In Process From Base 17:04 Automobile Brakes Bonder For [facility] 09/08/24 In Process 24 Hours 17:04 Emergency Dysrhythmia [facility] 09/08/24 In Process Protocol 17:04 Rhythm Strips Once [facility] 09/08/24 In Process Every Shift 17:04 Date of Service: Sep 08, 2024 Billing Provider: CAMRYN STOREY MD Common Visit Codes: 70877-YIVNUSU INP/OBS CARE (HIGH) Secondary Visit Codes: 05692-[id number] CARE PLAN 30 MINUTES AGATHA HENSLEY RESDIENT Sep 08, 2024 18:17 CAMRYN STOREY MD Sep 09, 2024 09:04
[2024-09-08] MEDS: LACTATED RINGER'S 1,000 ML IV ONE (18:21)
[2024-09-08 19:04] LABS: % Iron Saturation 20.5 % (15-50)
--- NOTE | 2024-09-08 19:30 | DVH ---
INDICATION: GI bleeding, possible Liver cirhosis TECHNIQUE: Multiple real-time sonographic images of the abdomen were obtained. COMPARISON: None FINDINGS: Hepatic parenchyma slightly echogenic suggesting steatosis. The liver measures 15.9 cm. No intrahepatic biliary ductal dilatation is noted. Gallbladder has been surgically removed.. The common duct measures 11.8 mm and is unremarkable. No p ericholecystic fluid is noted. The right kidney measures 8.7 cm. No hydronephrosis. The spleen measures 9.5 cm, within normal limits. The echogenicity is within normal limits. The pancreas is not well visualized due to obscuration from bowel gas. The visualized portions of the IVC and aorta are grossly unremarkable. IMPRESSION: 1. Liver measures 15.9 cm in length parenchyma appears slightly echogenic. 2. Spleen measures 9.5 cm in length. Minimal change in the ultrasound appearance of the splenic and h epatic parenchyma. 3. Gallbladder has been surgically removed. 4. Right kidney measures 8.7 cm long.
[2024-09-08] MEDS: InsuLIN REG 1unit/0.01ml Soln (100units/ml) SC SCH (20:00)
[2024-09-08] MEDS: ACCU-CHEK COMFORT CURVE STRIP VI SCH (20:01)
[2024-09-08 20:03] LABS: Phosphorus 3.5 mg/dL (2.4-5.1)
[2024-09-08 20:04] LABS: Blood Alcohol < 3.0 mg/dL (<10); Magnesium 1.5 mg/dL (1.6-2.6)
[2024-09-08 22:49] VITALS: BP 143/49; PULSE 78; RESP 17; TEMP 97.7; O2SAT 97
[2024-09-08 23:05] VITALS: PULSE 78; RESP 17; O2SAT 97
[2024-09-09] VITALS (9 sets, daily range): BP systolic 107–124; BP diastolic 36–66; PULSE 73–81; RESP 16–18; TEMP 97.7–99; O2SAT 95–98
[2024-09-09 06:39] LABS: Basophils # (auto) 0.1 10 ^3/uL (0-0.2); Eosinophils # (auto) 0.2 10 ^3/uL (0-0.8); Eosinophils % (auto) 3.1 % (0.0-7.0); Hemoglobin 8.4 g/dL (12.2-16.2); Lymphocytes # (auto) 2.5 10 ^3/uL (0.4-5.4); Mean Corpuscular Volume 96.7 fL (80.0-100.0); Monocytes # (auto) 0.4 10 ^3/uL (0-1.3)
[2024-09-09 06:43] LABS: Basophils % (auto) 0.9 % (0.0-2.0); Hematocrit 24.6 % (36.0-46.0); Lymphocytes % (auto) 38.9 % (10.0-50.0); Mean Corpuscular Hemoglobin 33.1 pg (28.0-32.0); Mean Corpuscular Hgb Conc. 34.3 g/dL (32.0-36.0); Monocytes % (auto) 6.8 % (0.0-12.0); Neutrophils # (auto) 3.2 10 ^3/uL (1.6-8.6); Neutrophils % (auto) 50.3 % (37.0-80.0); Nucleated Red Blood Cells % 0.1 %; Platelet Count (auto) 310 10^3/uL (140-450); Red Blood Cells 2.54 10^6/uL (4.0-5.20); Red Cell Distribution Width 16.1 % (11.8-14.3); White Blood Cell 6.3 10^3/uL (4.4-10.8)
[2024-09-09 06:47] LABS: Albumin 3.9 g/dL (3.2-4.8); Alkaline Phosphatase 54 U/L (46-116); Anion Gap 9 (5-15); Aspartate Aminotransferase 24 U/L (13-40); BUN/Creatinine Ratio 65.7 (10.0-20.0); Calcium 9.3 mg/dL (8.7-10.4); Carbon Dioxide 22 mmol/L (20-31); Potassium 4.1 mmol/L (3.5-5.1); Sodium 141 mmol/L (136-145); Total Protein 6.3 g/dL (5.7-8.2)
[2024-09-09 09:01] LABS: Chloride 110 mmol/L (98-107); Glucose 122 mg/dL (74-106)
[2024-09-09 09:02] LABS: Alanine Aminotransferase 64 U/L (7-40); Bilirubin, Total < 0.2 mg/dL (0.2-1.0); Blood Urea Nitrogen 46 mg/dL (9-23)
--- NOTE | 2024-09-09 13:35 | DVHPNRES ---
Progress Note Date Seen: Sep 09, 2024 Resident Creating Document: LACEY PASCAL RESIDENT Has the PT tested + for MRSA If YES, has PT been informed?: No Medical Necessity Reason Pt with a Central, PICC or Fol: No Subjective Review of Systems overnight patient has remained afebrile, blood pressure well maintained, breathing comfortably in the room air overall hemodynamically stable. H&H stable 8.9> 8.4 normocytic hypochromic anemia likely underlying iron-deficiency anemia, APTT elevated, BUN elevated likely due to upper GI bleed, hepatitis panel is pending, prediabetic range of HbA1c, low vitamin-D, on holding home anticoagulants and anti platelets no more dark stools. Objective vital signs Vital Sign Date Time Temp Pulse Resp B/P (MAP) Pulse Ox O2 Delivery O2 Flow Rate FiO2 09/09/24 12:39 97.7 81 17 112/46 (68) 97 97.7 09/08/24 23:05 Room Air* 0 21 Total Intake and Output 09/08/24 09/08/24 09/09/24 15:00 23:00 07:00 Intake Total 500 ml 0 ml Balance 500 ml 0 ml medications Current Medications Medications Dose Ordered Sig/Roxanne Route Start Time Stop Time Status Last Admin Dose Admin Nitroglycerin 0.4 mg Q5MINP PRN SL 09/08/24 17:15 Morphine Sulfate 2 mg Q30M PRN IV 09/08/24 17:15 Diagnostic Test (Pha) 1 strip IQ4HR 09/08/24 20:00 09/09/24 11:38 1 STRIP Insulin Human Regular IQ4HR SC 09/08/24 20:00 09/09/24 11:55 3 UNITS Dextrose 50 ml UD PRN IV 09/08/24 18:15 Examination General Appearance: Alert, Oriented X3, Cooperative, No acute distress HEENT: Atraumatic, PERRLA, EOMI, Mucous membrane moist/pink Respiratory: Clear to auscultation, Normal air movement Cardiovascular: Regular rate, Normal S1, Normal S2, No murmurs, no chest wall tenderness Abdominal: Normal bowel sounds, Soft, No tenderness, No hepatospenomegaly, No masses Extremities: No clubbing, No cyanosis, No edema, Normal pulses, No tenderness/swelling Skin: No rashes, No breakdown, No significant lesion Neuro: Bilateral lower limb weakness power 2/5 Psych/Mental Status: Mental status NL, Mood NL laboratory and microbiology Laboratory Tests 09/09/24 05:07 Test 09/09/24 05:07 Range/Units Serum Glucose 122 H 74-106 mg/dL Labs and/or images reviewed: Labs reviewed by me, Image(s) reviewed by me Problem List/Assessment/Plan Problem List/Assessment/Plan History of Present Illness This is a 79-year-old female with past medical history of diabetes mellitus type 2, hypertension, recurrent stroke, and post polio paraplegia came to the hospital because of black stool. Per patient, she has black stool since 5 days, and has bowel movement 1 time a day. She also complained of generalized weakness, tiredness and vomiting (nonbloody, food content) before starting black stool. She denies chest pain, shortness of breath, abdominal pain, diarrhea, fever, and any recent changes in the weight. 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 She also reported generalized weakness, tiredness, and non-bloody vomiting with food content before the onset of black stool. She denies chest pain, shortness of breath, abdominal pain, diarrhea, fever, and recent weight changes. Her past surgical history includes right carotid artery endarterectomy. She is wheelchair-bound due to paraplegia, an ex-smoker, and denies alcohol or drug use. She uses insulin and other medications, with a list to be provided by her son. She has no known allergies. Plan: #GI bleeding, unspecified location: Melena x3, likely due to GI bleeding, Likely due to GI bleeding, raised BUN Continue IV PPI b.i.d., hold anticoagulation monitor H&H, hepatitis panel pending. Upper GI endoscopy pending on Wednesday # acute blood loss anemia: Check iron panel/ferritin , transfusion threshold 7 g per dL #Moderate anemia, normocytic normochromic #Hyperkalemia , resolved # Diabetes Mellitus type 2: Insulin regular according to mild sliding scale , At home takes Lantus, glimepiride, pioglitazone, metformin 1000 mg daily. Highly controlled. # history of Cholecystectomy and hysterectomy. # Calcified granulomas in the spleen and a few in the liver. # overweight: BMI 27.6, weight loss counseling done. # History of dyslipidemia: On home atorvastatin 40 mg tab # history of DVT: Patient takes 5 mg b.i.d. Eliqudianna Pascal, when lastDVT provoked versus unprovoked yet to clear. #history of Recurrent stroke: Clopidogrel and atorvastatin 40 mg on hold # anxiety/ depression: Paroxetine 40 mg tablets daily # recurrent constipation: Takes lactulose as needed daily #irritable bowel syndrome: Diphenoxylate/atropine 4 times a day as needed likely due to metformin #previous history of UTI treated with nitrofurantoin, repeat urinalysis pending # deconditioning: Bilateral lower limb weakness power 2/5 physiotherapy evaluation pending. Diet: Clear liquid diet has been started, from Wednesday midnight to Wednesday morning. GI prophylaxis: protonix 40mg/Famotidine 20/not needed DVT prophylaxis: on SCDs Bowel regimen: none Barriers to discharge: Medical diagnosis and managment in progress. patient has caregiver named Matt brambila son. PCP: Ysabel Pascal, kai DVT and Specialist Relevent To Admission: GI, Dr. Lindsey Patient care and plan discussed with Dr. Hansen Disposition: Patient remains in [facility] Plan discussed with: Patient, Other (Primary team, RN) Date of Service: Sep 09, 2024 Billing Provider: CAMRYN STOREY MD Common Visit Codes: [id number] INP/OBS CARE(HIGH) LACEY PASCAL RESIDENT Sep 09, 2024 13:35 CAMRYN STOREY MD Sep 15, 2024 09:10
[2024-09-09 14:40] LABS: % Iron Saturation 25.9 % (15-50)
[2024-09-09] MEDS: PANTOPRAZOLE 40 MG/10 ML VIAL INJ IV ONE (16:19)
[2024-09-09] MEDS: ATORVASTATIN 20 MG TAB PO SCH (21:11)
[2024-09-09] MEDS: PANTOPRAZOLE 40 MG/10 ML VIAL INJ IV SCH (21:11)
--- NOTE | 2024-09-09 22:35 | DVHINCON2 ---
Date of service: Sep 09, [address] Martinez Reason for Consultation Melena possible GI bleed History of Present Illness This is a 79-year-old female with past medical history of diabetes mellitus type 2, hypertension, recurrent stroke, and post polio paraplegia came to the hospital because of black stool. Per patient, she has black stool since 5 days, and has bowel movement 1 time a day. She also complained of generalized weakness, tiredness and vomiting (nonbloody, food content) before starting black stool. She denies chest pain, shortness of breath, abdominal pain, diarrhea, fever, and any recent changes in the weight. Patient denies any recent EGD. S he had a colonoscopy about 5 years ago with a gastro group which she reports as negative Past Medical History PMHx: Diabetes type 2, hypertension, post-polio paraplegia, polio at [age] years of age Past Surgical History PSHx: Right carotid artery endarterectomy Cholecystectomy Family History: FH: breast cancer niece FH: heart attack G8 MOTHER G8 SISTER FH: stomach cancer G8 FATHER Allergies: Coded Allergies: NO KNOWN ALLERGIES (Unverified , 02/21/10) Home Meds Active Scripts Nitrofurantoin Monohydrate Mac (Macrobid) 100 Mg Cap, 100 MG PO BID for 5 Days, #10 CAP Prov:KINJAL BEASLEY MD 03/06/22 Reported Medications Prochlorperazine Maleate (Compazine) 10 Mg Tb 10/07/19 Hydrocodone-Acetaminophen (Mesa 10-325 mg) 1 Tab Tab 10/07/19 Potassium Chloride (Klor-Con M10) 10 Meq Tab 10/07/19 Primidone (MYSOLINE TABLET) 50 Mg Tb 10/07/19 Hctz (Hydrochlorothiazide) 25 Mg Tab 10/07/19 [pravastatin] No Conflict Check 10/07/19 Insulin Glargine (Lantus) 100 Unit/Ml Inj 10/07/19 Metformin Hydrochloride (Metformin Hcl) 850 Mg Tab, 1000 MG PO DAILY for 30 Days, MG 09/17/17 Paroxetine (PAXIL TABLET) 20 Mg Tb, 40 MG PO DAILY for 30 Days 09/17/17 Atorvastatin Calcium (Lipitor) 40 Mg Tab, 1 TAB PO QPM, #90 TAB 1 Refill 09/17/17 Clopidogrel Bisulfate (Plavix) 75 Mg Tab, 75 MG PO DAILY, TAB 09/17/17 Meclizine Hcl (Meclizine Hcl) 25 Mg Tab, 25 MG PO BIDP PRN for DIZZINESS for 30 Days, MG 09/17/17 Tolterodine Tartrate (Detrol La) 2 Mg Cap, 4 MG PO DAILY, CAP 09/17/17 Lisinopril (Lisinopril) 5 Mg Tab, 5 MG PO DAILY for 30 Days, MG 09/17/17 Pioglitazone Hydrochloride (ACTOS TABLET) 30 Mg Tb, 1 TAB PO DAILY, #30 TAB 5 Refills 09/17/17 Lorazepam (ATIVAN TABLET) 0.5 Mg Tb, 1 TAB PO BID, #60 TAB 09/17/17 Current Medications Current Medications Medications (Trade) Dose Ordered Sig/Roxanne Route PRN Reason Start Time Stop Time Status Last Admin Pantoprazole Sodium (Protonix) 40 mg BID IV 09/09/24 22:00 09/09/24 21:11 Atorvastatin Calcium (Lipitor) 40 mg HS PO 09/09/24 22:00 09/09/24 21:11 Paroxetine HCl (Paxil Tablet) 40 mg DAILY PO 09/10/24 10:00 Lactulose 30 ml DAILYPRN PRN PO FOR CONSTIPATION 09/09/24 20:00 Vital Signs Vital Signs Date Time Temp Pulse Resp B/P (MAP) Pulse Ox O2 Delivery O2 Flow Rate FiO2 09/09/24 16:51 99.0 75 17 110/47 (68) 95 99.0 09/09/24 08:00 Room Air* 0 21 Physical Exam General Appearance: Alert, Oriented X3, Cooperative, No acute distress HEENT: Atraumatic, PERRLA, EOMI, Mucous membrane moist/pink Respiratory: Clear to auscultation, Normal air movement Cardiovascular: Regular rate, Normal S1, Normal S2, No murmurs, no chest wall tenderness Abdominal: Normal bowel sounds, Soft, No tenderness, No hepatospenomegaly, No masses Extremities: No clubbing, No cyanosis, No edema, Normal pulses, No ten derness/swelling Skin: No rashes, No breakdown, No significant lesion Neuro: Bilateral lower limb weakness power 2/5 Psych/Mental Status: Mental status NL, Mood NL Labs/Diagnostic Data Labs Test 09/09/24 20:06 09/09/24 05:07 09/08/24 19:15 09/08/24 13:42 Range/Units POC Glucose 132 H 70-106 mg/dl White Blood Count 6.3 4.4-10.8 10^3/uL Red Blood Count 2.54 L 4.0-5.20 10^6/uL Hemoglobin 8.4 L 12.2-16.2 g/dL Hematocrit 24.6 #L 36.0-46.0 % Mean Corpuscular Volume 96.7 80.0-100.0 fL Mean Corpuscular Hemoglobin 33.1 H 28.0-32.0 pg Mean Corpuscular Hemoglobin Concent 34.3 32.0-36.0 g/dL Red Cell Distribution Width 16.1 H 11.8-14.3 % Platelet Count 310 140-450 10^3/uL Mean Platelet Volume 7.5 6.9-10.8 fL Neutrophils (%) (Auto) 50.3 37.0-80.0 % Lymphocytes (%) (Auto) 38.9 10.0-50.0 % Monocytes (%) (Auto) 6.8 0.0-12.0 % Eosinophils (%) (Auto) 3.1 0.0-7.0 % Basophils (%) (Auto) 0.9 0.0-2.0 % Neutrophils # (Auto) 3.2 1.6-8.6 10 ^3/uL Lymphocytes # (Auto) 2.5 0.4-5.4 10 ^3/uL Monocytes # (Auto) 0.4 0-1.3 10 ^3/uL Eosinophils # (Auto) 0.2 0-0.8 10 ^3/uL Basophils # (Auto) 0.1 0-0.2 10 ^3/uL Nucleated Red Blood Cells 0.1 % Sodium Level 141 136-145 mmol/L Potassium Level 4.1 3.5-5.1 mmol/L Chloride Level 110 H 98-107 mmol/L Carbon Dioxide Level 22 20-31 mmol/L Anion Gap 9 5-15 Blood Urea Nitrogen 46 #H 9-23 mg/dL Creatinine 0.70 0.550-1.02 mg/dL Glomerular Filtration Rate Calc 87 >90 mL/min BUN/Creatinine Ratio 65.7 H 10.0-20.0 Serum Glucose 122 H 74-106 mg/dL Calcium Level 9.3 8.7-10.4 mg/dL Iron Level 78 50-170 ug/dL Total Iron Binding Capacity 301 250-425 ug/dL Percent Iron Saturation 25.9 15-50 % Ferritin 23.6 10-291 ng/mL Total Bilirubin < 0.2 L 0.2-1.0 mg/dL Aspartate Amino Transferase (AST) 24 13-40 U/L Alanine Aminotransferase (ALT) 64 H 7-40 U/L Alkaline Phosphatase 54 46-116 U/L Total Protein 6.3 5.7-8.2 g/dL Albumin 3.9 3.2-4.8 g/dL Phosphorus Level 3.5 2.4-5.1 mg/dL Magnesium Level 1.5 L 1.6-2.6 mg/dL Plasma/Serum Blood Alcohol < 3.0 <10 mg/dL Troponin I High Sensitivity < 3 L </=34 ng/L Test 09/08/24 12:59 Range/Units Prothrombin Time 11.1 9.3-11.8 sec Prothrombin Time INR 1.05 0.9-1.15 Activated Partial Thromboplast Time 24.1 L 24.5-34.5 SEC Hemoglobin A1c 6.1 H <5.7 % A1C Vitamin B12 Level 438 211-911 pg/mL Vitamin D 25-Hydroxy 7.8 L 30.0-100 ng/mL Thyroid Stimulating Hormone (TSH) 1.85 0.55-4.78 uIU/mL Abd USG IMPRESSION: 1. Liver measures 15.9 cm in length parenchyma appears slightly echogenic. 2. Spleen measures 9.5 cm in length. Minimal change in the ultrasound appearance of the splenic and hepatic parenchyma. 3. Gallbladder has been surgically removed. 4. Right kidney measures 8.7 cm long. Problems(with codes): (1) Weakness (2) Anemia (3) GI bleed (4) Melena Plan/Recommendation Plan Clear liquid diet advance to full liquid Continue to monitor labs Protonix 40 mg IV q.12 hours Carafate 1 g p.o. twice a day Possible endoscopy in the next 24-48 hours once medically stabilized Once again I will follow this patient with you If hemoglobin drops below seven transfuse 1 unit PRBC I will follow up patient Patient was advised to discontinue NSAIDs, she may have been prescribed naproxen her a prescription pain medicine Plan discussed with: Patient HERLINDA MCCLELLAND MD Sep 09, 2024 22:35
[2024-09-10] VITALS (8 sets, daily range): BP systolic 105–135; BP diastolic 48–61; PULSE 72–86; RESP 16–20; TEMP 98–98.7; O2SAT 96–99
[2024-09-10] MEDS: LACTULOSE 20Gm/30ML SOLN PO PRN (04:12)
--- NOTE | 2024-09-10 05:22 | ECG ---
[facility] Test Date: 2024-09-08 Test Time: 09:10:05 Pat Name: NICHOLAS LOPEZ Department: er Room: 0290 A Gender: F Race Starter: eva : [id number] Requested By: ANDERSON STALLWORTH Order Number: [id number] Reading MD: Han Chin Measurements Intervals [place] Rate: 72 P: -4 DE: 202 QRS: 29 QRSD: 125 T: 50 QT: 365 QTc: 400 Interpretive Statements Sinus rhythm Nonspecific intraventricular conduction delay Low voltage throughout Electronically Signed On 09-10-2024 14:12:45 PST by Han Chin Please click the below link to view image of tracing.
[2024-09-10] MEDS: PARoxetine 20 MG TAB PO SCH (10:00)
[2024-09-10 11:20] LABS: Hematocrit 23.5 % (36.0-46.0); Hemoglobin 7.9 g/dL (12.2-16.2); Mean Corpuscular Hemoglobin 33.6 pg (28.0-32.0); Mean Corpuscular Hgb Conc. 33.9 g/dL (32.0-36.0); Mean Corpuscular Volume 99.3 fL (80.0-100.0); Platelet Count (auto) 307 10^3/uL (140-450); Red Blood Cells 2.36 10^6/uL (4.0-5.20); Red Cell Distribution Width 16.6 % (11.8-14.3); White Blood Cell 5.3 10^3/uL (4.4-10.8)
[2024-09-10 11:22] LABS: Band Neutrophils % (manual) 0; Basophils % (manual) 0 (0.0-2.0); Blast Cells 0; Metamyelocytes % 0; Myelocytes % 0; Promyelocytes % 0; Reactive Lymphocytes 0
[2024-09-10 11:38] LABS: Alanine Aminotransferase 57 U/L (7-40); Albumin 3.8 g/dL (3.2-4.8); Alkaline Phosphatase 53 U/L (46-116); Anion Gap 12 (5-15); Aspartate Aminotransferase 25 U/L (13-40); BUN/Creatinine Ratio 38.2 (10.0-20.0); Bilirubin, Total < 0.2 mg/dL (0.2-1.0); Blood Urea Nitrogen 26 mg/dL (9-23); Calcium 9.3 mg/dL (8.7-10.4); Carbon Dioxide 19 mmol/L (20-31); Chloride 108 mmol/L (98-107); Glucose 212 mg/dL (74-106); Potassium 4.1 mmol/L (3.5-5.1); Sodium 139 mmol/L (136-145); Total Protein 6.2 g/dL (5.7-8.2)
[2024-09-10 12:00] LABS: Eosinophils % (manual) 2 (0-7); Lymphocytes % (manual) 26 (10.0-50.0); Monocytes % (manual) 7 (0-12); Platelet Estimate Adequate
[2024-09-10] MEDS: ONDANSETRON HCL 4 MG/2 ML VIAL IV PRN (15:01)
--- NOTE | 2024-09-10 15:43 | DVH ---
Procedure: XY KUB ABDOMEN SINGLE VIEW Study Date and Requested Time: 09/10/2024 02:33 PM History: vomiting Technique: 2 views of the abdomen and pelvis are available for evaluation. Comparison: None Findings/ Impression: Gas-filled distended segment of small bowel of the midabdomen measuring up to 3.5 cm which may be due to ileus or bowel obstruction. Small to moderate amount of fecal material within the colon. Status post cholecystectomy. Additional surgical clip is noted over the right midabdomen. Nonspecifi c punctate densities over the left upper abdominal quadrant. Oval-shaped 0.9 x 1.7 cm density within the pelvis which may represent nonspecific calcification. Lung bases are outside the field of view. [id number] degenerative changes of the lumbar spine.
--- NOTE | 2024-09-10 16:17 | DVHPN2 ---
Progress Note - Dictate Date Seen: Sep 10, 2024 Has the PT tested + for MRSA If YES, has PT been informed?: No Medical Necessity Reason Pt with a Central, PICC or Fol: No Subjective No new complaints Hemoglobin drifted down to 7.9 Stool for occult blood pending vital signs Vital Sign Date Time Temp Pulse Resp B/P (MAP) Pulse Ox O2 Delivery O2 Flow Rate FiO2 09/10/24 12:47 98.1 86 18 119/49 (72) 98 98.1 09/10/24 08:00 Room Air* 0 21 Total Intake and Output 09/09/24 09/09/24 09/10/24 15:00 23:00 07:00 Intake Total 316 ml 240 ml Balance 316 ml 240 ml medications Current Medications Medications Dose Ordered Sig/Roxanne Route Start Time Stop Time Status Last Admin Dose Admin Nitroglycerin 0.4 mg Q5MINP PRN SL 09/08/24 17:15 Morphine Sulfate 2 mg Q30M PRN IV 09/08/24 17:15 Diagnostic Test (Pha) 1 strip IQ4HR 09/08/24 20:00 09/10/24 12:00 1 STRIP Insulin Human Regular IQ4HR SC 09/08/24 20:00 09/10/24 12:00 2 UNITS Dextrose 50 ml UD PRN IV 09/08/24 18:15 Pantoprazole Sodium 40 mg BID IV 09/09/24 22:00 09/10/24 10:00 40 MG Atorvastatin Calcium 40 mg HS PO 09/09/24 22:00 09/09/24 21:11 40 MG Paroxetine HCl 40 mg DAILY PO 09/10/24 10:00 Sucralfate 1 gm BID@0600,2200 PO 09/10/24 22:00 Ondansetron HCl 4 mg Q6HPRN PRN IV 09/10/24 12:45 09/10/24 15:01 4 MG objective General Appearance: Alert, Oriented X3, Cooperative, No acute distress HEENT: Atraumatic, PERRLA, EOMI, Mucous membrane moist/pink Respiratory: Clear to auscultation, Normal air movement Cardiovascular: Regular rate, Normal S1, Normal S2, No murmurs, no chest wall tenderness Abdominal: Normal bowel sounds, Soft, No tenderness, No hepatospenomegaly, No masses Extremities: No clubbing, No cyanosis, No edema, Normal pulses, No tenderness/swelling Skin: No rashes, No breakdown, No significant lesion Neuro: Bilateral lower limb weakness power 2/5 Psych/Mental Status: Mental status NL, Mood NL laboratory and microbiology Laboratory Tests 09/10/24 10:10 Test 09/10/24 10:10 Range/Units Serum Glucose 212 H 74-106 mg/dL Problems(with codes): (1) GI bleed (2) Anemia (3) Weakness (4) Melena Prognosis Plan Clear liquid diet advance to full liquid Continue to monitor labs Protonix 40 mg IV q.12 hours Carafate 1 g p.o. twice a day Endoscopy on 09/11/24 in am If hemoglobin drops below seven transfuse 1 unit PRBC I will follow up patient Patient was advised to discontinue NSAIDs, she may have been prescribed naproxen her a prescription pain medicine Dietary Evaluation Review Recommendations by RD: Protein Supplementation Comments: 1) Michael @ 1 pk bid 2) Advance to full liquid diet and progress to 2g Na CCHO 60g when medically feasible 3) Continue to monitor wound 4) Continue ongoing care Expected Outcomes/Goals: 1) wound to improve 2) diet and labs to improve 3) PO intake to improve 4) f/u in 2-3 days Plan discussed with: Patient HERLINDA MCCLELLAND MD Sep 10, 2024 16:17
--- NOTE | 2024-09-10 17:10 | DVHPNRES ---
Progress Note Date Seen: Sep 10, 2024 Resident Creating Document: AGATHA HENSLEY CELINE Has the PT tested + for MRSA If YES, has PT been informed?: No Medical Necessity Reason Pt with a Central, PICC or Fol: No Subjective Review of Systems This is a 79-year-old female with past medical history of diabetes mellitus type 2, hypertension, recurrent stroke, and post polio paraplegia came to the hospital because of black stool. Per patient, she has black stool since 5 days, and has bowel movement 1 time a day. She also complained of generalized weakness, tiredness and vomiting (nonbloody, food content) before starting black stool. She denies chest pain, shortness of breath, abdominal pain, diarrhea, fever, and any recent changes in the weight. 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 history: No allergic Patient seen and examined at the bedside enrollment processor and bowel movement today. Was complaining of vomiting. Patient reports: No new complaints, Feels better Changes from previous H/P or p: Changes Objective vital signs Vital Sign Date Time Temp Pulse Resp B/P (MAP) Pulse Ox O2 Delivery O2 Flow Rate FiO2 09/10/24 12:47 98.1 86 18 119/49 (72) 98 98.1 09/10/24 08:00 Room Air* 0 21 Total Intake and Output 09/09/24 09/09/24 09/10/24 15:00 23:00 07:00 Intake Total 316 ml 240 ml Balance 316 ml 240 ml medications Current Medications Medications Dose Ordered Sig/Roxanne Route Start Time Stop Time Status Last Admin Dose Admin Nitroglycerin 0.4 mg Q5MINP PRN SL 09/08/24 17:15 Morphine Sulfate 2 mg Q30M PRN IV 09/08/24 17:15 Diagnostic Test (Pha) 1 strip IQ4HR 09/08/24 20:00 09/10/24 12:00 1 STRIP Insulin Human Regular IQ4HR SC 09/08/24 20:00 09/10/24 12:00 2 UNITS Dextrose 50 ml UD PRN IV 09/08/24 18:15 Pantoprazole Sodium 40 mg BID IV 09/09/24 22:00 09/10/24 10:00 40 MG Atorvastatin Calcium 40 mg HS PO 09/09/24 22:00 09/09/24 21:11 40 MG Paroxetine HCl 40 mg DAILY PO 09/10/24 10:00 Sucralfate 1 gm BID@0600,2200 PO 09/10/24 22:00 Ondansetron HCl 4 mg Q6HPRN PRN IV 09/10/24 12:45 09/10/24 15:01 4 MG Examination General Appearance: Alert, Oriented X3, Cooperative, No acute distress HEENT: Atraumatic, PERRLA, EOMI, Mucous membrane moist/pink Respiratory: Clear to auscultation, Normal air movement Cardiovascular: Regular rate, Normal S1, Normal S2, No murmurs, no chest wall tenderness Abdominal: Normal bowel sounds, Soft, No tenderness, No hepatospenomegaly, No masses Extremities: No clubbing, No cyanosis, No edema, Normal pulses, No tenderness/swelling Skin: No rashes, No breakdown, No significant lesion Neuro: Bilateral lower limb weakness power 2/5 Psych/Mental Status: Mental status NL, Mood NL laboratory and microbiology Laboratory Tests 09/10/24 10:10 Test 09/10/24 10:10 Range/Units Serum Glucose 212 H 74-106 mg/dL Labs and/or images reviewed: Labs reviewed by me, Image(s) reviewed by me Problem List/Assessment/Plan Problem List/Assessment/Plan GI bleeding, unspecified location Melena, likely due to GI bleeding Abdominal ultrasound Hepatitis panel Serum alcohol level Consult GI, planned for the EGD for tomorrow NPO from midnight Protonix 40 mg b.i.d. Moderate anemia, normocytic normochromic Likely due to GI bleeding, raised BUN H&H monitoring Hyperkalemia, monitor History of cholecystectomy and hysterectomy Calcified granuloma in the spleen and Effient the liver, follow up on outpatient Dyslipidemia, continue atorvastatin History of recurrent CVA Anxiety/depression, paroxetine 40 mg daily Irritable bowel syndrome History of UTI Mellitus type 2 Insulin regular according to mild sliding scale DIET: NPO from midnight DVT PROPHYLAXIS: Due to possible bleeding, no anticoagulant is indicated at the moment, SCDs GI PROPHYLAXIS:: Protonix 40 mg b.i.d. BOWEL REGIMEN: Patient has bowel movements, due to possible GI bleeding, no indication for laxative CODE STATUS: Goal of care discussed in detail with the patient in presence of the nurse, patient is modified DNR (no chest compression, no cardioversion, no intubation, but is okay with BiPAP and vasopressors). ACP discussion approx 30mins 09/09/24 DISPOSITION: MedSur Patient's status discussed with the patient. Case discussed with Dr. Hansen Plan discussed with: Patient, Other (RN) My Orders My Orders Orders - AGATHA HENSLEY RESDISANJAY Procedure Category Date Status Time Sucralfate Susp PHA 09/10/24 In Process (Carafate Susp) 22:00 Ondansetron Hcl PHA 09/10/24 In Process (Zofran) 12:45 Notify Provider NOTICE 09/10/24 Transmitted Malnutrition 13:44 Nutritional NOURISH 09/10/24 Transmitted Supplements 13:44 Dietary NOTICE 09/10/24 Transmitted Recommendations 13:44 Kub Abdomen Single XY 09/10/24 Resulted View 14:24 Dietary Evaluation Review Recommendations by RD: Protein Supplementation Comments: 1) Michael @ 1 pk bid 2) Advance to full liquid diet and progress to 2g Na CCHO 60g when medically feasible 3) Continue to monitor wound 4) Continue ongoing care Expected Outcomes/Goals: 1) wound to improve 2) diet and labs to improve 3) PO intake to improve 4) f/u in 2-3 days Date of Service: Sep 10, 2024 Billing Provider: CAMRYN STOREY MD Common Visit Codes: [id number] INP/OBS CARE(HIGH) AGATHA HENSLEY RESDIENT Sep 10, 2024 17:10 CAMRYN STOREY MD Sep 15, 2024 09:30
[2024-09-10] MEDS: SUCRALFATE 1 GM/10 ML ORAL SUSP PO SCH (21:20)
[2024-09-11] VITALS (8 sets, daily range): BP systolic 101–131; BP diastolic 42–60; PULSE 70–105; RESP 14–20; TEMP 98–99; O2SAT 93–100
[2024-09-11 07:28] LABS: Eosinophils # (auto) 0.2 10 ^3/uL (0-0.8); Lymphocytes # (auto) 2.5 10 ^3/uL (0.4-5.4); Monocytes # (auto) 0.5 10 ^3/uL (0-1.3)
[2024-09-11 07:33] LABS: Basophils # (auto) 0 10 ^3/uL (0-0.2); Basophils % (auto) 0.7 % (0.0-2.0); Eosinophils % (auto) 2.4 % (0.0-7.0); Hemoglobin 7.7 g/dL (12.2-16.2); Lymphocytes % (auto) 37.4 % (10.0-50.0); Mean Corpuscular Hemoglobin 32.8 pg (28.0-32.0); Mean Corpuscular Hgb Conc. 33.4 g/dL (32.0-36.0); Mean Corpuscular Volume 98.5 fL (80.0-100.0); Monocytes % (auto) 7.4 % (0.0-12.0); Neutrophils # (auto) 3.4 10 ^3/uL (1.6-8.6); Neutrophils % (auto) 52.1 % (37.0-80.0); Nucleated Red Blood Cells % 0.1 %; Platelet Count (auto) 309 10^3/uL (140-450); Red Blood Cells 2.34 10^6/uL (4.0-5.20); White Blood Cell 6.5 10^3/uL (4.4-10.8)
[2024-09-11 08:05] LABS: Alanine Aminotransferase 57 U/L (7-40); Albumin 3.8 g/dL (3.2-4.8); Alkaline Phosphatase 54 U/L (46-116); Anion Gap 11 (5-15); Aspartate Aminotransferase 26 U/L (13-40); BUN/Creatinine Ratio 34.8 (10.0-20.0); Blood Urea Nitrogen 23 mg/dL (9-23); Calcium 9.1 mg/dL (8.7-10.4); Carbon Dioxide 20 mmol/L (20-31); Chloride 108 mmol/L (98-107); Glucose 144 mg/dL (74-106); Potassium 3.9 mmol/L (3.5-5.1); Sodium 139 mmol/L (136-145)
[2024-09-11 08:06] LABS: Total Protein 6.1 g/dL (5.7-8.2)
[2024-09-11 08:07] LABS: Bilirubin, Total < 0.2 mg/dL (0.2-1.0)
[2024-09-11] MEDS ORDERED: SODIUM CHLORIDE LOCK 10 ML ONE (11:08)
[2024-09-11] MEDS: LIDOCAINE VISCOUS 2% 15ML UD ONE (11:09)
[2024-09-11] MEDS: diphenhdrAMINE HCL 50 MG/1 ML VL ONE (11:11)
[2024-09-11] MEDS: fentaNYL CITRATE 100 MCG/2 ML VL ONE (11:11)
[2024-09-11] MEDS: MIDAZOLAM HCL 5 MG/ML-1ML VIAL ONE (11:11)
--- NOTE | 2024-09-11 11:27 | DVHOP2 ---
Operative Report DATE OF OPERATION: 09/11/24 PROCEDURE: Upper Endoscopy with biopsy. PREOPERATIVE INDICATION: The patient is a 79 -year-old female undergoing endoscopy for nausea vomiting and history of melena POSTOPERATIVE DIAGNOSES: 1. Patient had 1 cm sliding-type hiatal hernia with slightly irregular squamocolumnar junction no significant erosive esophagitis 2. Mild gastritis involving the antrum and body of the stomach with pre-pyloric antral gastric erosions 3. Moderate duodenitis of the duodenal bulb and postbulbar area with superficial healing ulcers and erosions 4. Otherwise normal examination up to the 2nd and 3rd part of the duodenum with no active bleeding no fresh or old blood in the stomach PROCEDURE PERFORMED BY: Herlinda Lindsey GI NURSE: Lidya SCOPE: Olympus videoendoscope. ASA CLASS: 2 PREOPERATIVE MEDICATIONS: Versed 2 mg, Fentanyl 25 mcg, Benadryl 50 mg I administered moderate sedation throughout this _10_ minutes procedure. An independent trained observer pushed medications at my direction, and monitored the patient's level of consciousness and physiological status throughout. PROCEDURE IN DETAIL: After obtaining an informed consent, the patient was placed on left lateral decubitus position. The patient was then sedated with the above medications. A bite block was placed between her teeth. The endoscope was then passed through the oropharynx, into the esophagus, and through the stomach and pylorus up to the second and third part of the duodenum. The endoscope was then withdrawn. The 2nd and 3rd part of the duodenal were normal. The duodenal bulb and postbulbar area showed moderate duodenitis with some healing superficial ulcers and erosions The pre-pyloric area antrum and body showed [id number] gastritis with hyperemia erythema and some superficial gastric erosions. Duodenal and gastric biopsies were obtained. On retroflexion the fundus cardia and angularis were normal. No fresh or old blood was seen in the upper GI tract. The endoscope was then withdrawn into the distal esophagus Patient had a 1 cm sliding-type hiatal hernia with slightly irregular squamocolumnar junction no significant erosive esophagitis The remaining distal and proximal esophagus and oropharynx were unremarkable The patient tolerated the procedure well without difficulty. COMPLICATIONS : None SPECIMENS: Duodenal biopsies Gastric biopsies DISPOSITION: Transfer back to the floor Stable PLAN: 1. Await for biopsy result 2. Will place pt on Protonix 40 mg bid 3. Carafate 1 g p.o. twice a day 4. DC aspirin NSAIDs smoking alcohol 5. Soft mechanical diet 6. Outpatient follow up with me in 4-6 weeks to review results and discuss further management and outpatient elective colonoscopy HERLINDA LINDSEY MD Sep 11, 2024 11:27
[2024-09-11 12:05] LABS: Hepatitis A Ab IgM Negative; Hepatitis B Core IgM Negative (Negative); Hepatitis B Surface Antigen Negative (Negative)
[2024-09-11 13:26] LABS: Hepatitis C Antibody Negative (Negative)
--- NOTE | 2024-09-11 18:09 | DVHPNRES ---
Progress Note Date Seen: Sep 11, 2024 Resident Creating Document: AGATHA HENSLEY CELINE Has the PT tested + for MRSA If YES, has PT been informed?: No Medical Necessity Reason Pt with a Central, PICC or Fol: No Subjective Review of Systems This is a 79-year-old female with past medical history of diabetes mellitus type 2, hypertension, recurrent stroke, and post polio paraplegia came to the hospital because of black stool. Per patient, she has black stool since 5 days, and has bowel movement 1 time a day. She also complained of generalized weakness, tiredness and vomiting (nonbloody, food content) before starting black stool. She denies chest pain, shortness of breath, abdominal pain, diarrhea, fever, and any recent changes in the weight. 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 history: No allergic Patient seen and examined at the bedside medicine assistant and bowel movement today. Patient reports: No new complaints, Feels better Objective vital signs Vital Sign Date Time Temp Pulse Resp B/P (MAP) Pulse Ox O2 Delivery O2 Flow Rate FiO2 09/11/24 11:53 79 16 119/46 (70) 93 09/11/24 11:25 99.0 99.0 09/11/24 11:25 Nasal Cannula 5.0 99 Total Intake and Output 09/10/24 09/10/24 09/11/24 15:00 23:00 07:00 Intake Total 480 ml 200 ml Output Total 300 ml Balance 480 ml -100 ml medications Current Medications Medications Dose Ordered Sig/Roxanne Route Start Time Stop Time Status Last Admin Dose Admin Nitroglycerin 0.4 mg Q5MINP PRN SL 09/08/24 17:15 Morphine Sulfate 2 mg Q30M PRN IV 09/08/24 17:15 Diagnostic Test (Pha) 1 strip IQ4HR 09/08/24 20:00 09/11/24 15:38 1 STRIP Insulin Human Regular IQ4HR SC 09/08/24 20:00 09/10/24 12:00 2 UNITS Dextrose 50 ml UD PRN IV 09/08/24 18:15 Pantoprazole Sodium 40 mg BID IV 09/09/24 22:00 09/11/24 09:53 40 MG Atorvastatin Calcium 40 mg HS PO 09/09/24 22:00 09/10/24 21:20 40 MG Paroxetine HCl 40 mg DAILY PO 09/10/24 10:00 Sucralfate 1 gm BID@0600,2200 PO 09/10/24 22:00 09/10/24 21:20 1 GM Ondansetron HCl 4 mg Q6HPRN PRN IV 09/10/24 12:45 09/10/24 15:01 4 MG Examination General Appearance: Alert, Oriented X3, Cooperative, No acute distress HEENT: Atraumatic, PERRLA, EOMI, Mucous membrane moist/pink Respiratory: Clear to auscultation, Normal air movement Cardiovascular: Regular rate, Normal S1, Normal S2, No murmurs, no chest wall tenderness Abdominal: Normal bowel sounds, Soft, No tenderness, No hepatospenomegaly, No masses Extremities: No clubbing, No cyanosis, No edema, Normal pulses, No tenderness/swelling Skin: No rashes, No breakdown, No significant lesion Neuro: Bilateral lower limb weakness power 2/5 Psych/Mental Status: Mental status NL, Mood NL laboratory and microbiology Laboratory Tests 09/11/24 06:00 Test 09/11/24 06:00 Range/Units Serum Glucose 144 H 74-106 mg/dL Labs and/or images reviewed: Labs reviewed by me, Image(s) reviewed by me Problem List/Assessment/Plan Problem List/Assessment/Plan GI bleeding, unspecified location Melena, likely due to GI bleeding Abdominal ultrasound Hepatitis panel Serum alcohol level Consult GI, on EGD there was superficial gastric erosions with 1 cm sliding type hiatal hernia Protonix 40 mg b.i.d. Carafate 1 g p.o. b.i.d. Moderate anemia, normocytic normochromic Likely due to GI bleeding, raised BUN H&H monitoring Hyperkalemia, monitor History of cholecystectomy and hysterectomy Calcified granuloma in the spleen and Effient the liver, follow up on outpatient Dyslipidemia, continue atorvastatin History of recurrent CVA Anxiety/depression, paroxetine 40 mg daily Irritable bowel syndrome History of UTI Mellitus type 2 Insulin regular according to mild sliding scale DIET: Soft mechanical diet DVT PROPHYLAXIS: Due to possible bleeding, no anticoagulant is indicated at the moment, SCDs GI PROPHYLAXIS:: Protonix 40 mg b.i.d. BOWEL REGIMEN: Patient has bowel movements, due to possible GI bleeding, no indication for laxative CODE STATUS: Goal of care discussed in detail with the patient in presence of the nurse, patient is modified DNR (no chest compression, no cardioversion, no intubation, but is okay with BiPAP and vasopressors). ACP discussion approx 30mins 09/09/24 DISPOSITION: MedSur Patient's status discussed with the patient. Case discussed with Dr. Hansen Plan discussed with: Patient, Other (RN) My Orders My Orders Orders - AGATHA HENSLEY Procedure Category Date Status Time Pt Request For Service PT 09/11/24 Logged 12:25 Initiate Vte WILMAR 09/11/24 In Process Prophylaxis 13:28 Dietary Evaluation Review Recommendations by RD: Protein Supplementation Comments: 1) Michael @ 1 pk bid 2) Advance to full liquid diet and progress to 2g Na CCHO 60g when medically feasible 3) Continue to monitor wound 4) Continue ongoing care Expected Outcomes/Goals: 1) wound to improve 2) diet and labs to improve 3) PO intake to improve 4) f/u in 2-3 days Date of Service: Sep 11, 2024 Billing Provider: CAMRYN STOREY MD Common Visit Codes: [id number] INP/OBS CARE(HIGH) AGATHA HENSLEY RESDIENT Sep 11, 2024 18:09 CAMRYN STOREY MD Sep 15, 2024 09:40
[2024-09-12 05:00] VITALS: BP 113/40; PULSE 89; RESP 16; TEMP 99; O2SAT 95
[2024-09-12 06:45] LABS: Basophils # (auto) 0 10 ^3/uL (0-0.2); Eosinophils # (auto) 0.1 10 ^3/uL (0-0.8); Hemoglobin 7.1 g/dL (12.2-16.2); Lymphocytes # (auto) 2.1 10 ^3/uL (0.4-5.4); Monocytes # (auto) 0.9 10 ^3/uL (0-1.3)
[2024-09-12 06:48] LABS: Basophils % (auto) 0.4 % (0.0-2.0); Eosinophils % (auto) 1.1 % (0.0-7.0); Hematocrit 21.8 % (36.0-46.0); Lymphocytes % (auto) 18.3 % (10.0-50.0); Mean Corpuscular Hemoglobin 32.4 pg (28.0-32.0); Mean Corpuscular Hgb Conc. 32.7 g/dL (32.0-36.0); Mean Corpuscular Volume 99.2 fL (80.0-100.0); Neutrophils # (auto) 8.2 10 ^3/uL (1.6-8.6); Neutrophils % (auto) 72.2 % (37.0-80.0); Platelet Count (auto) 306 10^3/uL (140-450); Red Cell Distribution Width 16.7 % (11.8-14.3); White Blood Cell 11.3 10^3/uL (4.4-10.8)
[2024-09-12 06:58] LABS: Albumin 3.6 g/dL (3.2-4.8); Alkaline Phosphatase 49 U/L (46-116); Anion Gap 9 (5-15); Aspartate Aminotransferase 30 U/L (13-40); BUN/Creatinine Ratio 24.3 (10.0-20.0); Blood Urea Nitrogen 17 mg/dL (9-23); Calcium 9.1 mg/dL (8.7-10.4); Carbon Dioxide 20 mmol/L (20-31); Sodium 139 mmol/L (136-145); Total Protein 5.8 g/dL (5.7-8.2)
[2024-09-12 07:06] LABS: Alanine Aminotransferase 58 U/L (7-40); Bilirubin, Total 0.2 mg/dL (0.2-1.0); Chloride 110 mmol/L (98-107); Glucose 176 mg/dL (74-106)
[2024-09-12 08:47] VITALS: BP 123/55; PULSE 81; RESP 18; TEMP 98.7; O2SAT 97
[2024-09-12 11:46] LABS: Eosinophils # (auto) 0.1 10 ^3/uL (0-0.8); Eosinophils % (auto) 0.9 % (0.0-7.0); Hemoglobin 7.2 g/dL (12.2-16.2)
[2024-09-12 11:48] LABS: Basophils # (auto) 0 10 ^3/uL (0-0.2); Basophils % (auto) 0.3 % (0.0-2.0); Hematocrit 22.1 % (36.0-46.0); Lymphocytes % (auto) 17.3 % (10.0-50.0); Mean Corpuscular Hemoglobin 32.6 pg (28.0-32.0); Mean Corpuscular Hgb Conc. 32.7 g/dL (32.0-36.0); Mean Corpuscular Volume 99.6 fL (80.0-100.0); Monocytes % (auto) 8.4 % (0.0-12.0); Neutrophils # (auto) 8.4 10 ^3/uL (1.6-8.6); Neutrophils % (auto) 73.1 % (37.0-80.0); Platelet Count (auto) 332 10^3/uL (140-450); Red Blood Cells 2.21 10^6/uL (4.0-5.20); Red Cell Distribution Width 16.6 % (11.8-14.3); White Blood Cell 11.5 10^3/uL (4.4-10.8)
[2024-09-12] MEDS: IRON SUCROSE COMPLEX 110 ML IV SCH (12:29)
[2024-09-12 13:00] VITALS: BP 115/58; PULSE 88; RESP 20; TEMP 98.8; O2SAT 97
--- NOTE | 2024-09-12 16:22 | DVHDSRES ---
Discharge Summary Date of Admission Resident Creating Document: MICHELLE SANABRIA RESDISANJAY Sep 08, 2024 at 17:04 Date of Discharge: Sep 12, 2024 Admitting Diagnosis GI bleeding Labs/Diagnostic Data: Laboratory Results Test 09/12/24 11:37 09/12/24 10:57 09/12/24 05:54 09/10/24 12:00 POC Glucose 294 mg/dl (70-106) White Blood Count 11.5 10^3/uL (4.4-10.8) Red Blood Count 2.21 10^6/uL (4.0-5.20) Hemoglobin 7.2 g/dL (12.2-16.2) Hematocrit 22.1 % (36.0-46.0) Mean Corpuscular Volume 99.6 fL (80.0-100.0) Mean Corpuscular Hemoglobin 32.6 pg (28.0-32.0) Mean Corpuscular Hemoglobin Concent 32.7 g/dL (32.0-36.0) Red Cell Distribution Width 16.6 % (11.8-14.3) Platelet Count 332 10^3/uL (140-450) Mean Platelet Volume 7.3 fL (6.9-10.8) Neutrophils (%) (Auto) 73.1 % (37.0-80.0) Lymphocytes (%) (Auto) 17.3 % (10.0-50.0) Monocytes (%) (Auto) 8.4 % (0.0-12.0) Eosinophils (%) (Auto) 0.9 % (0.0-7.0) Basophils (%) (Auto) 0.3 % (0.0-2.0) Neutrophils # (Auto) 8.4 10 ^3/uL (1.6-8.6) Lymphocytes # (Auto) 2.0 10 ^3/uL (0.4-5.4) Monocytes # (Auto) 1.0 10 ^3/uL (0-1.3) Eosinophils # (Auto) 0.1 10 ^3/uL (0-0.8) Basophils # (Auto) 0 10 ^3/uL (0-0.2) Nucleated Red Blood Cells 0.0 % Sodium Level 139 mmol/L (136-145) Potassium Level 4.0 mmol/L (3.5-5.1) Chloride Level 110 mmol/L (98-107) Carbon Dioxide Level 20 mmol/L (20-31) Anion Gap 9 (5-15) Blood Urea Nitrogen 17 mg/dL (9-23) Creatinine 0.70 mg/dL (0.550-1.02) Glomerular Filtration Rate Calc 87 mL/min (>90) BUN/Creatinine Ratio 24.3 (10.0-20.0) Serum Glucose 176 mg/dL (74-106) Calcium Level 9.1 mg/dL (8.7-10.4) Total Bilirubin 0.2 mg/dL (0.2-1.0) Aspartate Amino Transferase (AST) 30 U/L (13-40) Alanine Aminotransferase (ALT) 58 U/L (7-40) Alkaline Phosphatase 49 U/L (46-116) Total Protein 5.8 g/dL (5.7-8.2) Albumin 3.6 g/dL (3.2-4.8) Stool Occult Blood Positive (Negative) Stool Occult Blood Sample #3 (Negative) Test 09/10/24 10:10 09/09/24 05:07 09/08/24 19:15 09/08/24 13:42 Differential Total Cells Counted 100.0 (100) Neutrophils % (Manual) 65 (37.0-80.0) Band Neutrophils % (Manual) 0 Lymphocytes % (Manual) 26 (10.0-50.0) Monocytes % (Manual) 7 (0-12) Eosinophils % (Manual) 2 (0-7) Basophils % (Manual) 0 (0.0-2.0) Metamyelocytes % (manual) 0 Myelocytes % (Manual) 0 Promyelocytes % (Manual) 0 Blast Cells % (Manual) 0 Reactive Lymphocytes 0 Platelet Estimate Adequate Iron Level 78 ug/dL (50-170) Total Iron Binding Capacity 301 ug/dL (250-425) Percent Iron Saturation 25.9 % (15-50) Ferritin 23.6 ng/mL (10-291) Phosphorus Level 3.5 mg/dL (2.4-5.1) Magnesium Level 1.5 mg/dL (1.6-2.6) Plasma/Serum Blood Alcohol < 3.0 mg/dL (<10) Troponin I High Sensitivity < 3 ng/L (</=34) Test 09/08/24 12:59 Prothrombin Time 11.1 sec (9.3-11.8) Prothrombin Time INR 1.05 (0.9-1.15) Activated Partial Thromboplast Time 24.1 SEC (24.5-34.5) Hemoglobin A1c 6.1 % A1C (<5.7) Vitamin B12 Level 438 pg/mL (211-911) Vitamin D 25-Hydroxy 7.8 ng/mL (30.0-100) Thyroid Stimulating Hormone (TSH) 1.85 uIU/mL (0.55-4.78) Hepatitis A IgM Antibody Negative Hepatitis B Surface Antigen Negative (Negative) Hepatitis B Core IgM Antibody Negative (Negative) Hepatitis C Antibody Negative (Negative) Other Laboratory Tests 09/12/24 10:57 09/12/24 05:54 Brief Hx & Hospital Course: This is an 79-year-old female with a past medical history of type 2 diabetes mellitus, hypertension, recurrent stroke, and post-polio paraplegia, who presented to the hospital with black stool for the past 5 days, having one bowel movement per day. She also reported generalized weakness, tiredness, and non- bloody vomiting with food content before the onset of black stool. She denies chest pain, shortness of breath, abdominal pain, diarrhea, fever, and any recent weight changes. Her past surgical history includes right carotid artery endarterectomy. Family history is noncontributory. Socially, she is wheelchair- bound due to paraplegia, is an ex-smoker, and denies alcohol or drug use. She uses insulin for diabetes and other medications, which her son will bring to the hospital. She has no known allergies. During hospital course, the patient was given Protonix 40 mg b.i.d., Carafate 1 g b.i.d.. GI was consulted, on EGD there was, 1 cm sliding-type hiatal hernia with slightly irregular squamocolumnar junction no significant erosive esophagitis, mild gastritis involving the antrum and body of the stomach with pre-pyloric antral gastric erosions with moderate duodenitis of the duodenal bulb and postbulbar area with superficial healing ulcers and erosions. Biopsy from the duodenum and gastric area were taken, sent for pathology evaluation. Level ultrasound showed liver at 15.9 cm with slight increased echogenicity. Serum alcohol level were checked, were negative. Hepatitis panel including hepatitis a.m. antibody, hepatitis-B antibody and antigen, hepatitis-C antibody were negative. The GI recommended to follow the patient on outpatient basis. On 09/12, the patient was feeling better since admission. The patient had no active symptoms, clinically and hemodynamically was stable. Discharge plan discussed with the patient and the patient was discharge. Discharge plan: ollow up with the PCP within 1 week of the discharge. Follow up with the discharge Clinic with 1 week of the discharge. Follow up with the GI doctor within 4-6 week of the discharge. Protonix 40 mg daily next item Carafate 1 g b.i.d. Continue home medicine Operations or Procedures [place] [id number] Ph: [phone] DIAGNOSTIC IMAGING Diagnostic Imaging Report : [id number] Signed PATIENT: NICHOLAS LOPEZ ACCT: [id number] UNIT: [id number] : 1945 LOC: ER ROOM / BED: / AGE / SEX: 79 / F ADM STATUS: REG ER SERVICE 1022 ORDERING PHYSICIAN: ANDERSON STALLWORTH MD PROCEDURE(s): ABPL - CT AB PEL WO CON-NO ORAL OR IV REASON: gib ORDER NUMBER(s): [id number], ACCESSION NUMBER(s): [id number] CT ABDOMEN AND PELVIS WITHOUT CONTRAST CLINICAL HISTORY: gib TECHNIQUE: Multiple contiguous axial images of the abdomen and pelvis without intravenous contrast. The images were reformatted degenerate coronal and sagittal reconstructions. All CT scans at this medical facility are performed using dose modulation techniques as appropriate to a performed exam including the following:Automated exposure control was utilized; adjustment of the MA and/or KV according to patient size; and use of iterative reconstruction technique. Radiation Dose Information: CT Dose: CTDI volume is 12 mGy. Dose-length product is 724 mGy*cm Comparison: None FINDINGS: Evaluation of the abdomen and pelvis is limited without intravenous contrast. Gallbladder is surgically absent. There are calcified granulomas in the spleen and a few in the liver. There is a 2.4 cm right lower pole renal cyst. There is no evidence of nephrolithiasis or hydronephrosis. The pancreas, and adrenal glands, appear within normal limits. There is no gross evidence of abdominal lymphadenopathy. There is no free fluid or free air. The stomach grossly appears unremarkable. The small and large bowel loops demonstrate normal caliber. There is moderate amount of stool in the colon. Calcified atherosclerotic changes in the abdominal aorta. The IVC appears within normal limits. The bladder appears unremarkable for the degree of distention. Uterus is surgically absent.. There is no gross evidence of a pelvic mass. There is no free fluid collection. Lung bases are clear. There is no acute osseous abnormality. IMPRESSION: 1. There is no acute process in the abdomen and pelvis. 2. Moderate amount of stool in the colon. 3. Cholecystectomy and hysterectomy. 4. Calcified granulomas in the spleen and a few in the liver. HS:Y ATED BY: CHRISTIANO FALLON MD DICTATED DATE/TIME: 09/08/24 105 SIGNED BY: CHRISTIANO FALLON MD SIGNED DATE/TIME: 09/08/24 105 CC: [facility] Operative Report Patient Name: Nicholas Lopez Unit Number: [id number] Date of : 1945 Patient Status: Admitted Inpatient Attending Doctor: Michelle Sanabria Resdient Operative Report Operative Report DATE OF OPERATION: 09/11/24 PROCEDURE: Upper Endoscopy with biopsy. PREOPERATIVE INDICATION: The patient is a 79 -year-old female undergoing endoscopy for nausea vomiting and history of melena POSTOPERATIVE DIAGNOSES: 1. Patient had 1 cm sliding-type hiatal hernia with slightly irregular squamocolumnar junction no significant erosive esophagitis 2. Mild gastritis involving the antrum and body of the stomach with pre-pyloric antral gastric erosions 3. Moderate duodenitis of the duodenal bulb and postbulbar area with superficial healing ulcers and erosions 4. Otherwise normal examination up to the 2nd and 3rd part of the duodenum with no active bleeding no fresh or old blood in the stomach PROCEDURE PERFORMED BY: Herlinda Mcclelland GI NURSE: Lidya SCOPE: Olympus videoendoscope. ASA CLASS: 2 PREOPERATIVE MEDICATIONS: Versed 2 mg, Fentanyl 25 mcg, Benadryl 50 mg I administered moderate sedation throughout this _10_ minutes procedure. An independent trained observer pushed medications at my direction, and monitored the patient's level of consciousness and physiological status throughout. PROCEDURE IN DETAIL: After obtaining an informed consent, the patient was placed on left lateral decubitus position. The patient was then sedated with the above medications. A bite block was placed between her teeth. The endoscope was then passed through the oropharynx, into the esophagus, and through the stomach and pylorus up to the second and third part of the duodenum. The endoscope was then withdrawn. The 2nd and 3rd part of the duodenal were normal. The duodenal bulb and postbulbar area showed moderate duodenitis with some healing superficial ulcers and erosions The pre-pyloric area antrum and body showed [id number] gastritis with hyperemia erythema and some superficial gastric erosions. Duodenal and gastric biopsies were obtained. On retroflexion the fundus cardia and angularis were normal. No fresh or old blood was seen in the upper GI tract. The endoscope was then withdrawn into the distal esophagus Patient had a 1 cm sliding-type hiatal hernia with slightly irregular squamocolumnar junction no significant erosive esophagitis The remaining distal and proximal esophagus and oropharynx were unremarkable The patient tolerated the procedure well without difficulty. COMPLICATIONS : None SPECIMENS: Duodenal biopsies Gastric biopsies DISPOSITION: Transfer back to the floor Stable PLAN: 1. Await for biopsy result 2. Will place pt on Protonix 40 mg bid 3. Carafate 1 g p.o. twice a day 4. DC aspirin NSAIDs smoking alcohol 5. Soft mechanical diet 6. Outpatient follow up with me in 4-6 weeks to review results and discuss further management and outpatient elective colonoscopy HERLINDA MCCLELLAND MD Sep 11, 2024 11:27 Condition at Discharge: Good Final Diagnosis/Problems List GI bleeding, likely due to duodenal ulcer Melena, likely due to GI bleeding Gastritis Moderate duodenitis Superficial duodenal ulcer/erosion Sliding-type hiatal hernia Ruled out erosive esophagitis Moderate anemia, normocytic normochromic Hyperkalemia, monitor History of cholecystectomy and hysterectomy Calcified granuloma in the spleen and Effient the liver, follow up on outpatient Dyslipidemia, continue atorvastatin History of recurrent CVA Anxiety/depression, paroxetine 40 mg daily Irritable bowel syndrome History of UTI Mellitus type 2 Ruled out hepatitis a/B/C Hyperkalemia Transaminitis Moderate anemia, likely due to GI bleeding, status post transfusion Discharge Disposition: Home Discharge Instruct/Medications Diet: Consistent carbohydrate Activity: No Restrictions, As Tolerated Follow Up/Referral: Follow up with the PCP within 1 week of the discharge. Follow up with the GI doctor on outpatient basis. Follow up with the discharge Clinic Medications: Protonix 40 mg daily for 14 days Carafate 1 g b.i.d. for 14 days Continue home medicine Discharge Statement: "Patient was advised to return to the ER or call 911 if any headaches, dizziness, shortness of breath, chest pain, abdominal pain, bleeding, fevers, or worsening of medical condition. Patient was counseled about treatment plan, medications, possible side effects, patientverbalized understanding. All questions were answered to the best of my ability. This discharge took greater then 30 minutes in planning, reviewing documentation, counseling the patient, and discussing with other team members." ASSESSMENT ASSESSMENT Assessment Upper GI bleeding Date of Service: Sep 12, 2024 Billing Provider: CAMRYN STOREY MD Common Visit Codes: 44477-ZFF/[id number] DISCH DAY >30min MICHELLE SANABRIA RESDIENT Sep 12, 2024 16:22 CAMRYN STOREY MD Sep 21, 2024 09:28
[2024-09-12 17:00] VITALS: BP 117/77; PULSE 82; RESP 20; TEMP 98.7; O2SAT 97
--- NOTE | 2024-09-12 22:07 | DVHPN2 ---
Progress Note - Dictate Date Seen: Sep 12, 2024 (Late entryPt seen at 12 noon) Has the PT tested + for MRSA If YES, has PT been informed?: No Medical Necessity Reason Pt with a Central, PICC or Fol: No Subjective No new complaints Hemoglobin drifted down to 7.1 Hb today 7.2 No active GI bleeding Stool for occult blood positive vital signs Vital Sign Date Time Temp Pulse Resp B/P (MAP) Pulse Ox O2 Delivery O2 Flow Rate FiO2 09/12/24 17:00 98.7 82 20 117/77 (90) 97 98.7 09/12/24 08:16 Room Air* 0 21 Total Intake and Output 09/11/24 09/11/24 09/12/24 15:00 23:00 07:00 Intake Total 100 ml 200 ml 400 ml Balance 100 ml 200 ml 400 ml objective ;General Appearance: Alert, Oriented X3, Cooperative, No acute distress, mild pallor, HEENT: Atraumatic, PERRLA, EOMI, Mucous membrane moist/pink Respiratory: Clear to auscultation, Normal air movement Cardiovascular: Regular rate, Normal S1, Normal S2, No murmurs, no chest wall tenderness Abdominal: Normal bowel sounds, Soft, No tenderness, No hepatospenomegaly, No masses Extremities: No clubbing, No cyanosis, No edema, Normal pulses, No tenderness/swelling Skin: No rashes, No breakdown, No significant lesion Neuro: Bilateral lower limb weakness power 2/5 Psych/Mental Status: Mental status NL, Mood NL laboratory and microbiology Laboratory Tests 09/12/24 10:57 09/12/24 05:54 Test 09/12/24 05:54 Range/Units Serum Glucose 176 H 74-106 mg/dL Problems(with codes): (1) Melena (2) Weakness (3) Anemia (4) GI bleed (5) UTI (urinary tract infection) (6) Hypoglycemia (7) Periorbital ecchymosis of right eye (8) Fall with injury (9) Gastroduodenitis Prognosis PLAN Protonix 40 mg p.o. twice a day Carafate 1 g p.o. twice a day Patient will be given IV iron Patient can be discharged home on iron pills Outpatient follow up with me in 4-6 weeks to discuss elective colonoscopy ; last colonoscopy negative five years ago DC aspirin NSAIDs smoking and alcohol Discharge planning is in progress Dietary Evaluation Review Recommendations by RD: Protein Supplementation Comments: 1) Michael @ 1 pk bid 2) Advance to full liquid diet and progress to 2g Na CCHO 60g when medically feasible 3) Continue to monitor wound 4) Continue ongoing care Expected Outcomes/Goals: 1) wound to improve 2) diet and labs to improve 3) PO intake to improve 4) f/u in 2-3 days Plan discussed with: Patient, Other (Nurse) HERLINDA MCCLELLAND MD Sep 12, 2024 22:07
[2024-09-13] MEDS ORDERED: PANT40TA2 PO (10:27)
[2024-09-13] MEDS ORDERED: SUCR1SUS26 PO (10:27)
== END 2024-09-12 21:24 | disposition home or self-care (01) | DRG 378 ==
LOC: ER 09:02 → EDUNIT# 09:02 → EDBD 09:02 → OVERFLOW 17:04 → WEST WING 22:20
PROVIDERS: ADMIT Student in an Organized Health Care Education/Training Program; ATTEND Student in an Organized Health Care Education/Training Program
PROC: 0DB68ZX Excision of Stomach, Via Natural or Artificial Opening Endoscopic, Diagnostic (ICD-10-PCS; 2024-09-11)
PROC: 0DB98ZX Excision of Duodenum, Via Natural or Artificial Opening Endoscopic, Diagnostic (ICD-10-PCS; principal; 2024-09-11 11:07)
DX: K26.4 Chronic or unspecified duodenal ulcer with hemorrhage (principal); D62 Acute posthemorrhagic anemia; G82.20 Paraplegia, unspecified; K25.9 Gastric ulcer, unspecified as acute or chronic, without hemorrhage or perforation; K29.70 Gastritis, unspecified, without bleeding; K29.80 Duodenitis without bleeding; E87.5 Hyperkalemia; E11.9 Type 2 diabetes mellitus without complications; I10 Essential (primary) hypertension; K44.9 Diaphragmatic hernia without obstruction or gangrene; I25.10 Atherosclerotic heart disease of native coronary artery without angina pectoris; E66.3 Overweight; E78.5 Hyperlipidemia, unspecified; F41.9 Anxiety disorder, unspecified; F32.A Depression, unspecified; K58.9 Irritable bowel syndrome, unspecified; Z68.27 Body mass index [BMI] 27.0-27.9, adult; Z86.73 Personal history of transient ischemic attack (TIA), and cerebral infarction without residual deficits; Z90.49 Acquired absence of other specified parts of digestive tract; Z82.49 Family history of ischemic heart disease and other diseases of the circulatory system; Z99.3 Dependence on wheelchair; Z83.3 Family history of diabetes mellitus; Z80.3 Family history of malignant neoplasm of breast; Z80.0 Family history of malignant neoplasm of digestive organs; Z79.4 Long term (current) use of insulin; Z86.718 Personal history of other venous thrombosis and embolism; Z90.710 Acquired absence of both cervix and uterus
CPT/HCPCS: 36415; 43239; 71045; 74018; 74176; 76705; 80048; 80053; 80074; 80320; 82270; 82306; 82607; 82728; 82962; 83036; 83540; 83550; 83735; 84100; 84443; 84484; 85007; 85025; 85027; 85610; 85730; 86850; 86900; 86901; 93005; 97110; 97163; 97530; 99291; G0378; J1756; J1815; J2250; J2405; J2470